=== PATIENT | male | born 1965 | race Caucasian/White ===

== ENCOUNTER → 2017-09-24 11:43 | Outpatient (CLI) | payer OTHER, SELFPAY ==
[2017-09-24 13:09] LABS: AST(SGOT) 33 U/L (15-37); Alanine Aminotransfer ALT/SGPT 65 U/L (16-61); Alkaline Phosphatase 76 U/L (45-117); Cholesterol 132 mg/dL (200); Globulin 3.4 g/dL (2.2-4.2); High Density Lipoprotein 47 mg/dL; Protein, Total 7.4 g/dL (6.4-8.2); Triglycerides 101 mg/dL; Very Low Density Lipoprotein 20 mg/dL (5-40)
== END ==
PROVIDERS: Family Provider Family Medicine; PCP Family Medicine; Visit Provider Physician Assistant Medical
DX: E78.5 Hyperlipidemia, unspecified (principal); Z79.899 Other long term (current) drug therapy
CPT/HCPCS: 36415; 80061; 80076

== ENCOUNTER 2018-04-18 18:30 | Outpatient (RCR) | payer OTHER, SELFPAY ==
--- NOTE | 2018-03-20 16:23 | HP.PTEVAL_ITS ---
Patient's Visit Information JAYLEEN CARTAGENA is a 52 year old M referred to Physical Therapy by Ottoniel Saenz with a diagnosis of RIGHT CALF STRAIN - MEDIAL. Date of Evaluation: 03/20/18 Physical Therapist: Danita Mathews - Visit Plan Frequency: 2-3x /Week Duration: 4-6 Weeks Plan: TRANSFER OF CARE TO [facility] PT. THIS POC TO BE AMMENDED BY SAID PT APPROPRIATE. CURRENT PLAN IS FOR RIGHT LE US, ROM, STRETCHING AND STRENGTHEING NEEDED TO HELP MEET SET GOALS. 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 Disability: NO. Present symptoms: CENTER OF THE CALF. NO NUMBNESS OR TINGLING. PATIENT REPORTS HE DID FEEL THE OLD KNOT IN THE BACK OF HIS RIGHT THIGH WHILE BATTING JUST ABOUT 5 MINUTES BEFORE THIS HAPPEND WITH HIS CALF. Present since: LAST NIGHT. Pain Scale: WORST 10/10, LEAST 0/10. Currently: 07/25. Commenced as a result of: PLAYING SOFTBALL - CHASING A BALL. TURNED AND IT POPPED. Symptoms at onset: SAME. Worse: PULLING FOOT UP AND WALKING. TOUCHING IT. Better: SITTING, EXTENDING FOOT. LYING DOWN WITH WEIGHT ON R[place]. Disturbed sleep: YES. Previous history/Previous treatment: HAMSTRING STRAIN ABOUT 3 YEARS AGO TREATED WITH PHYSICAL THERAPY. Gait: PAIN AND LIMP ON RIGHT LE WITH WALKING. Accidents: NO. Unexplained weight loss: NO. Imaging: NONE. PMH: RIGHT SHOULDER SURGERY 1987. AFIB. OTHER: PATIENT REPORTS HIS FAMILY HAS A BLOOD CLOTTING DISORDER AND HE ISN'T SURE IF HE HAS IT OR NOT. - Objective THIS PATIENT AMBULATES INDEP'LY INTO PT TODAY LIMPING ON HIS RIGHT LE AND WEARING A COMPRESSION GARMET. HE IS NOT USING ANY ASSISTIVE DEVICES. THERE IS DECREASED MUSCLE TONE OF THE RIGHT CALF COMPARED TO THE LEFT AND TENDERNESS AND BRUISING ALONG THE MEDIAL HEAD OF THE GASTROC. LLE ROM AND STRENGTH IS WNL. RIGHT LE STRENGTH: HIP 4/5, KNEE EXT 4/5, KNEE FLEX 4/5, ANKLE DORSI FLEX AT LEAST 3+/5 BUT DIFFICULT TO ASSESS DUE TO CALF PAIN WITH ACTIVE ROM OF RIGHT ANKLE INTO FULL DORSIFLEXION. PLANTAR FLEX 2-/5 AND TESTING PROVOKES PAIN. PATIENT IS ABLE TO ACTIVELY WIGGLE ALL TOES. MORRIS LE LIGHT TOUCH SENSATION IS INTACT AND SYMMETRICAL. THE RIGHT CALF IS REALLY NOT HYPERSENSATIVE TO LIGHT TOUCH BUT THERE IS SWELLING AND DEEPER PALPATION OF THE RIGHT MEDIAL GASTROC PROVOKES PAIN. HE HAS SOME TENDERNESS THROUGH OUT THE BODY OF THE MEDIAL AND LATERAL GASTROC BUT NOT MUCH MEDIALLY. HE IS NOT TENDER IN HIS HAMSTRINGS. RIGHT LE ROM IS WFL BUT PAIN IS PROVOKED WITH ANKLE AROM TESTING. TREATMENT: PATIENT WAS SEEN TODAY FOR NON-THERMAL US TO THE RIGHT MEDIAL CALF WITH PATIENT SUPINE FOLLOWED BY GENTLE STICK ROLL-OUT AND HEP INSTRUCTION FOR QS 'S, AROM KNEE FLEXION, AND GENTLE AROM OF LEFT FOOT AND ANKLE. PATIENT HAS A FOAM ROLLER THAT HE MAY DO GENTLY WELL. HOME INSTRUCTION FOR REST, ICE, ELEVATION AND GENTLE ROM. PATIENT COMMUNCIATED A GOOD UNDERSTANDING OF ALL INSTRUCTIONS AFTER GIVEN. CASE CONFERENCE WITH [facility] PT TODAY. - Goals Goal 1:: DECREASE C/O RIGHT CALF PAIN Goal Time Frame: 4-6 Weeks Goal 2:: INCREASE PAINFREE ROM OF RIGHT FOOT AND ANKLE TO ALLOW FOR IMPROVED ADL 'S Goal Time Frame: 4-6 Weeks Goal 3:: INCREASE FUNCTIONAL STRENGTH OF RIGHT LE TO ALLOW FOR RETURN TO PRIOR LEVEL OF FUNCTION. Goal Time Frame: 4-6 Weeks Goal 4:: INDEP GAIT WITHOUT DEVIATION Goal Time Frame: 4-6 Weeks Goal 5:: INDEP HEP. Goal Time Frame: 4-6 Weeks - Rehabilitation Potential Rehabilitation Potential: Good - Anticipated Interventions Patient/Client Instruction: Educate patient on: Condition, Plan of Care, Risk Factors, Benefits of Fitness Program For the Purpose of:: To improve self management Therapeutic Exercise to Include: Strength training, Agility training, Flexibilty training, Gait and locomotor training, Passive ROM, Active ROM For the Purpose of:: To decrease pain, To increase ROM, To improve muscle performance and motor function, To increase tolerance to activity/condition/ position, To improve ability of physical actions for home/community/work/leisure , To improve gait and locomotor functions Manual Therapy Techniques to Include: Passive ROM, Soft tissue mobilization For the Purpose of:: To decrease pain, To increase ROM, To improve nutrient delivery to tissue TENS: Yes Cryotherapy (ice pack, ice massage): Yes Ultrasound (thermal/non thermal): Yes - NON-THERMAL X 2-3 DAYS For the Purpose of:: To decrease pain, To decrease swelling/inflammation, To increase ROM, To improve nutrient delivery to tissue Thank you for the opportunity to evaluate your patient. For Medicare and Medicare HMO plans, please review the plan of care and approve it. It will need to be FAXED BACK to us at [phone] for Medicare purposes. Please let me know if there are questions or concerns regarding this plan of care. Physician Signature: Date:
--- NOTE | 2018-05-30 16:00 | HP.PT.NRP ---
HP - Discharge Summary (1) - Patient Information JAYLEEN CARTAGENA was seen in my office for initial evaluation on 03/20/18. The following Plan of Care was established for this patient: Initial Frequency: 2-3x /Week Initial Duration: 4-6 Weeks - Anticipated Interventions Patient/Client Instruction: Educate patient on: Condition, Plan of Care, Risk Factors, Benefits of Fitness Program For the Purpose of:: To improve self management Therapeutic Exercise to Include: Strength training, Agility training, Flexibilty training, Gait and locomotor training, Passive ROM, Active ROM For the Purpose of:: To decrease pain, To increase ROM, To improve muscle performance and motor function, To increase tolerance to activity/condition/position, To improve ability of physical actions for home/community/work/leisure, To improve gait and locomotor functions Manual Therapy Techniques to Include: Passive ROM, Soft tissue mobilization For the Purpose of:: To decrease pain, To increase ROM, To improve nutrient delivery to tissue TENS: Yes Cryotherapy (ice pack, ice massage): Yes Ultrasound (thermal/non thermal): Yes - NON-THERMAL X 2-3 DAYS For the Purpose of:: To decrease pain, To decrease swelling/inflammation, To increase ROM, To improve nutrient delivery to tissue This patient was last seen in our office . Pertinent comments regarding their Physical therapy will appear below: Pt was treated for 9 PT visits for his R calf strain througth the date of 04/18/18. Pt phoned the clinic a few weeks later to reports he was doing well and didn't feel like he needed any more PT at that time. Pt was discontinued at that time. At this point I will be discontinuing this patient from physical therapy. I would be happy to see this patient again in the future if found appropriate by the physician. Thank you! Cali Wu, PT,
== END 2018-04-18 19:00 | disposition home or self-care (01) ==
LOC: PT 18:30
PROVIDERS: Family Provider Family Medicine; PCP Family Medicine; Visit Provider Family Medicine
DX: S86.111D Strain of other muscle(s) and tendon(s) of posterior muscle group at lower leg level, right leg, subsequent encounter (principal)
CPT/HCPCS: 97035; 97110; 97140; 97161; 97530

== ENCOUNTER 2018-05-06 05:22 | Day surgery (SDC) | payer OTHER, SELFPAY ==
[2018-05-06] VITALS (8 sets, daily range): BP systolic 86–145; BP diastolic 62–112; PULSE 66–80; RESP 14–16; TEMP 35.9–37.1; O2SAT 94–100; BMI 30.4
--- NOTE | 2018-05-06 | COLBX_PTH ---
PATIENT: JAYLEEN CARTAGENA LOC: EN U#:[id number] AGE/SX: 52/M ROOM: RE05/06/[address]: Dr. Rene Quintana MD : 1965 BED: DIS: 05/06/2018 SPEC #: [id number] RECD: 05/06/18 13:51 STATUS: BASILIA GIBSON #: [id number] KEMAL: 05/06/18 00:[address]: Rene Quintana DEPT: SURGICAL PATHOLOGY RECD BY: Adnrae Chung ENTERED: 05/06/18 13:52 SP TYPE: COLON BX OTHR DR: Dr. Ottoniel Saenz MD Tissues: A - Cecum, NOS B - Sigmoid colon biopsy C - Rectum, NOS Procedures: Surgery Specimen Level IV HEADER OPERATION: Colonoscopy (MOD) PRE-OP DIAGNOSIS: Screening TISSUE SUBMITTED: A - Biopsy of cecum polyp, B - Polypectomy of distal sigmoid polyp, C - Polypectomy of rectal polyp MICROSCOPIC DIAGNOSIS A. Cecum polyp, biopsy: Tubular adenoma. B. Distal sigmoid polyp, polypectomy: Hyperplastic polyp. C. Rectal polyp, biopsy: Consistent with serrated adenoma (mixed tubular adenoma and hyperplastic polyp). RUFINO:vinay 05/07/18 MICROSCOPIC DESCRIPTION Slides are reviewed. GROSS DESCRIPTION A - Received in fixative is one container labeled with the patient's name and designated biopsy of cecum polyp. The specimen consists of multiple irregular fragments of light barillas soft tissue that in aggregate measure 1.5 x 0.6 x 0.1 cm. The specimen is totally submitted in one cassette. B - Received in fixative is one container labeled with the patient's name and designated distal sigmoid polyp. The specimen consists of one irregular fragment of light barillas soft tissue that measures 0.3 x 0.3 x 0.1 cm. The specimen is totally submitted in one cassette. C - Received in fixative is one container labeled with the patient's name and designated rectal polyp. The specimen consists of a piece of barillas-pink polyp measuring 0.3 x 0.3 x 0.1 cm. The entire specimen is submitted in one cassette. / RUFINO:vinay 05/06/18 TC:1 CPT: 39062 x3
--- NOTE | 2018-05-06 06:19 | HP.PCM_ITS ---
Problem List (1) Screening for intestinal cancer Status: Acute History of Present Illness Date of Admission: 05/06/18 The patient is a 52 year old M screening for intestinal cancer. He has never had a previous colonoscopy. He has had some mild hemorrhoidal disease. No abdominal pain. No bright red blood per rectum or melena. No direct family members with colon cancer. He does have an uncle had colon cancer that I assisted. He otherwise states that he enjoys good health. Past Medical History Past Medical History (Chronic Problems): Chronic Problems (Last Reviewed 09/24/17 @ 12:46 by Di Holman) Sinus bradycardia (Chronic) Syncope (Chronic) Valvular heart disease (Chronic) Nonrheumatic mitral valve prolapse (Chronic) HLD (hyperlipidemia) (Chronic) Paroxysmal atrial fibrillation (Chronic) Hypokalemia (Chronic) Medical History: Medical History (Last Reviewed 09/24/17 @ 12:46 by Di MilnerEase My Sell) Nonrheumatic mitral valve prolapse (Chronic) I34.1 HLD (hyperlipidemia) (Chronic) E78.5 Paroxysmal atrial fibrillation (Chronic) I48.0 Hypokalemia (Chronic) E87.6 Allergies amoxicillin Allergy (Verified 09/24/17 12:46) Unknown Home Medications: Ambulatory Orders Medication Instructions Recorded metoprolol succinate ER 25 mg 25 mg PO QDAY #90 tab 06/25/17 tablet,extended release 24 hr aspirin 81 mg tablet,delayed 81 mg PO QDAY 08/03/17 release flecainide 100 mg tablet 100 mg PO BID tab 08/03/17 selenium 200 mcg tablet,delayed 200 mcg PO QDAY ea 08/03/17 release potassium chloride ER 10 mEq 20 meq PO QDAY #180 tab 02/13/18 tablet,extended release Surgical History: Surgical History (Last Updated 09/24/17 @ 12:45 by Di Holman) History of cholecystectomy Z90.49 Smoking Status: Never smoker Review of Systems Constitutional: Denies: Anorexia HEENT: Denies: Difficulty Swallowing Cardiovascular: Denies: Chest Pain Respiratory: Denies: Cough Gastrointestinal: Denies: Abdominal Pain Endocrine: Denies: Change in Body Habitus VTE Information - Inpt Only VTE Present on Admission: No Patient Problems: Active and Suspected Problems (Last Reviewed 09/24/17 @ 12:46 by Di Holman) Screening for intestinal cancer (Acute) - Physical Exam General: Alert, Oriented x3, Cooperative, No apparent distress HEENT: Atraumatic Oral: Moist Mucosa Neck: Supple, Negative Carotid Bruits Lungs: Clear to auscultation Cardiovascular: Regular rate, Regular Rhythm Abdomen: Bowel Sounds Present, Soft, Non Tender, Non-Distended Extremities: No Calf Tenderness Psych/Mental Status: Normal Affect Vital Signs Temp Pulse Resp BP Pulse Ox 96.6 F L 80 16 132/99 H 98 05/06/18 05:44 05/06/18 05:44 05/06/18 05:44 05/06/18 05:44 05/06/18 05:44 Oxygen Delivery Method Room Air Weight: 231 lb Body Mass Index (BMI) 30.4 Assessment/Plan All Active Problems (Last Reviewed 09/24/17 @ 12:46 by Di Holman) Screening for intestinal cancer (Acute) I recommend a screening colonoscopy. The patient is aware of the technique, benefits, risks and alternatives. He has had an opportunity to ask and have questions answered. We will proceed at his discretion. Primary care physician Dr. Ottoniel Quintana M.D., F.A.C.S.
--- NOTE | 2018-05-06 06:55 | OP.ENDO_ITS ---
Patient Name: Costa Ribera Procedure Date: 05/06/2018 6:15 AM Date of : 1965 Age: 52 Procedure: Colonoscopy Indications: Screening for colorectal malignant neoplasm Providers: Rene Quintana MD Referring MD: Rene Quintana MD Medicines: Midazolam 4.5 mg IV, Meperidine 100 mg IV Patient Profile: Last Colonoscopy: none. The patient's first colonoscopy is today. Complications: No immediate complications. Procedure: Pre-Anesthesia Assessment: - Prior to the procedure, a History and Physical was performed, and patient medications and allergies were reviewed. The patient's tolerance of previous anesthesia was also reviewed. The risks and benefits of the procedure and the sedation options and risks were discussed with the patient. All questions were answered, and informed consent was obtained. Prior Anticoagulants: The patient has taken no previous anticoagulant or antiplatelet agents. ASA Grade Assessment: I - A normal, healthy patient. After reviewing the risks and benefits, the patient was deemed in satisfactory condition to undergo the procedure. After I obtained informed consent, the scope was passed under direct vision. Throughout the procedure, the patient's blood pressure, pulse, and oxygen saturations were monitored continuously. The colonoscope was introduced through the anus and advanced to the cecum, identified by appendiceal orifice and ileocecal valve. The colonoscopy was performed without difficulty. The patient tolerated the procedure well. The quality of the bowel preparation was good. The ileocecal valve was photographed. Moderate Sedation: Moderate (conscious) sedation was personally administered by the endoscopist. The following parameters were monitored: oxygen saturation, heart rate, blood pressure, and response to care. Total physician intraservice time was 15 minutes. Scope In: 6:32:24 AM Scope Withdrawal Time 0 hours 13 minutes 31 seconds Scope Out: 6:48:20 AM Total Procedure Duration Time 0 hours 15 minutes 56 seconds Findings: The perianal and digital rectal examinations were normal. A 4 mm polyp was found in the cecum. The polyp was sessile. The polyp was removed with a cold biopsy forceps. Resection and retrieval were complete. A 5 mm polyp was found in the distal sigmoid colon. The polyp was sessile. The polyp was removed with a hot snare. Resection and retrieval were complete. A 5 mm polyp was found in the rectum. The polyp was sessile. The polyp was removed with a hot snare. Resection and retrieval were complete. A few diverticula were found in the sigmoid colon. Impression: - One 4 mm polyp in the cecum, removed with a cold biopsy forceps. Resected and retrieved. - One 5 mm polyp in the distal sigmoid colon, removed with a hot snare. Resected and retrieved. - One 5 mm polyp in the rectum, removed with a hot snare. Resected and retrieved. - Diverticulosis in the sigmoid colon. Recommendation: - Discharge patient to home. - Resume previous diet. - Continue present medications. - Telephone my office for pathology results in 1 week. - Repeat colonoscopy in 3 years for surveillance. Procedure Code(s): --- Professional --- 77519, Colonoscopy, flexible; with removal of tumor(s), polyp(s), or other lesion(s) by snare technique 94023, 59, Colonoscopy, flexible; with biopsy, single or multiple 99691, 59, Moderate sedation services provided by the same physician or other qualified health prompt care rn performing the diagnostic or therapeutic service that the sedation supports, requiring the presence of an independent trained observer to assist in the monitoring of the patient's level of consciousness and physiological status; initial 15 minutes of intraservice time, patient age 5 years or older Diagnosis Code(s): --- Professional --- Z12.11, Encounter for screening for malignant neoplasm of colon D12.0, Benign neoplasm of cecum D12.5, Benign neoplasm of sigmoid colon K62.1, Rectal polyp K57.30, Diverticulosis of large intestine without perforation or abscess without bleeding CPT copyright 2017 [employer]. All rights reserved. The codes documented in this report are preliminary and upon client relation specialist review may be revised to meet current compliance requirements. Rene Quintana MD 05/06/2018 6:54:56 AM This report has been signed electronically. Number of Addenda: 0 Note Initiated On: 05/06/2018 6:15 AM
== END 2018-05-06 07:59 | disposition home or self-care (01) ==
LOC: EN 05:22 → AC 05:25
PROVIDERS: Family Provider Family Medicine; PCP Family Medicine; Referring Provider Surgery; Visit Provider Surgery
PROC: 0DJD8ZZ Inspection of Lower Intestinal Tract, Via Natural or Artificial Opening Endoscopic (ICD-10-PCS; CPT 45378; principal; 2018-05-06 06:25)
DX: Z12.11 Encounter for screening for malignant neoplasm of colon (principal); D12.0 Benign neoplasm of cecum; D12.5 Benign neoplasm of sigmoid colon; D12.8 Benign neoplasm of rectum; K57.30 Diverticulosis of large intestine without perforation or abscess without bleeding; I25.10 Atherosclerotic heart disease of native coronary artery without angina pectoris; I34.1 Nonrheumatic mitral (valve) prolapse; I48.0 Paroxysmal atrial fibrillation; E78.5 Hyperlipidemia, unspecified; E87.6 Hypokalemia; R00.1 Bradycardia, unspecified; Z79.82 Long term (current) use of aspirin; Z79.899 Other long term (current) drug therapy
CPT/HCPCS: 45380; 45385; 88305; 99152; 99153; J7120

== ENCOUNTER 2018-06-21 22:08 | Emergency (ER) | payer OTHER, SELFPAY ==
[2018-06-21 22:09] VITALS: BP 174/104; PULSE 69; RESP 14; TEMP 36.6; O2SAT 96; BMI 31.6
--- NOTE | 2018-06-21 22:29 | EKG12_ITS ---
Test Reason : CP Blood Pressure : / mmHG Vent. Rate : 063 BPM Atrial Rate : 063 BPM P-R Int : 214 ms QRS Dur : 100 ms QT Int : 438 ms P-R-T Axes : 032 000 005 degrees QTc Int : 448 ms Sinus rhythm with 1st degree A-V block Moderate voltage criteria for LVH, may be normal variant Borderline ECG Confirmed by BEATRIZ HOPSON, RYAN ([id number]), editor publications SELMA PALMA ([id number]) on 06/24/2018 1:56:53 PM Referred By: MR Confirmed By:RYAN HENDERSON MD
--- NOTE | 2018-06-21 22:37 | RAD_ITS ---
STUDY: X-RAY CHEST REASON FOR EXAM: Male, 52 years old. Chest pain radiating into back TECHNIQUE: PA and lateral views of the chest. COMPARISON: None. FINDINGS: case monitor leads are present. The lungs are clear and expanded. There is no demonstrated pleural abnormality. Normal size heart. Normal mediastinum and blanca. Normal visualized pulmonary arteries. Normal visualized aortic arch and descending thoracic aorta. Normal visualized thoracic spine. An orthopedic screw is seen overlying the right shoulder area on the edge of the film. There is no demonstrated abnormality of the visualized soft tissue structures of the upper abdomen. RAD/Chest PA and Lateral IMPRESSION: No acute cardiopulmonary disease process is seen. Electronically Signed: Brandon Mirza MD at 22:58 EST , Service support ,
[2018-06-21 22:44] LABS: Absolute Lymphocyte Count 2.28 X10^3/ul (0.83-4.51); Absolute Neutrophil Count 3.7 X10^3/uL (2.0-7.7); Basophil# 0.03 X10^3/uL; Basophil% 0.5 % (0-1); Eosinophil# 0.09 X10^3/uL; Eosinophils% 1.4 % (0-5); Hematocrit 44.6 % (40-54); Lymphocyte # 2.28 X10^3/ul (4.0); Lymphocyte % 34.5 % (19-41); Mean Corp Hgb Conc 33.6 g/gl (32-36); Mean Corpuscular Volume 92.1 fL (80-94); Mean Platelet Vol. 10.1 fl (6.2-12.0); Monocyte# 0.51 X10^3/uL; Monocyte% 7.7 % (0-10); Neutrophil # 3.69 X10^3/uL (2.7-7.7); Neutrophil % 55.7 % (47-70); POSITIVE COUNT NO; POSITIVE DIFFERENTIAL NO; POSITIVE MORPHOLOGY NO; Platelet Count 230 K/mm3 (150-450); RBC Distribution Width CV 13.3 % (11.6-14.6); Red Blood Count 4.84 M/mm3 (4.6-6.2); White Blood Count 6.6 K/mm3 (4.4-11.0)
[2018-06-21] MEDS: Aspirin 81 MG TAB.CHEW 324 MG PO (22:48)
[2018-06-21 22:52] VITALS: O2SAT 96
[2018-06-21 23:04] LABS: Anion Gap 8 (5-15); BUN 26 mg/dL (7-18); BUN/Creat Ratio 26.4 RATIO (10-20); Calcium,Total 9.3 mg/dL (8.5-10.1); Chloride 104 mmol/L (98-107); Creatinine, Serum 0.98 mg/dL (0.70-1.30); EST Glomerular Filtration Rate 86 mL/min (>60); Est Glom Filt Rate - Afr Amer 103 mL/min (>60); Estimated Creatinine Clearance 101.91 ml/min; Glucose 81 mg/dL (74-106); Sodium Level 141 mmol/L (136-145)
[2018-06-21 23:11] VITALS: BP 151/103; PULSE 55; RESP 16; O2SAT 95
--- NOTE | 2018-06-21 23:39 | ED.DCSUM_ITS ---
- ER Visit Summary Date of Service: 06/21/18 Chief Complaint: Chest pain History of Present Illness: The patient is a 52 M presenting for evaluation secondary chest pain. Patient reports that today he had an episode of chest heaviness that lasted about 2-3 seconds. He states he was driving when this happened. There were no associated symptoms with this. Patient states that intermittently over the course the last 2 weeks he has been getting left arm pain, but this does not seem to be associated with any sort of inducible factor or exertion. Denies any shortness of breath, lightheadedness, nausea, palpitations. Patient has a history of well-controlled A. fib, and is on flecainide and metoprolol. His last stress test was about 7 years ago. Physical Examination: Vital signs are within normal limits, patient is afebrile. General: Patient is well-nourished well-developed and in no acute distress. Head: Normocephalic, atraumatic Eyes: Pupils equal round and reactive bilaterally, extra occular motion intact bialterally ENT: Moist mucous membranes Neck: Supple, no lymphadenopathy, no JVD, no meningismus CVS: Heart regular rate and rhythm, no murmurs, rubs or gallops, radial pulses 2+ bilaterally Resp: Respirations nondistressed, lung sounds clear bilaterally Abdomen: Soft, nontender, nondistended, no palpable masses, normal bowel sounds Back: Nontender Extremities: Nontender, atraumatic, active full range of motion, no peripheral edema Skin: warm, no rashes, no petechia Neuro: Alert and oriented x 4, CN 2-12 intact, no lateralizing neurological defecits Psyc: Normal affect Test Results: EKG shows sinus rhythm with a first-degree AV block at a rate of 63. Isoelectric ST segments normal T waves. CBC chemistry troponin unremarkable, chest x-ray unremarkable. Emergency Department Course and Treatment: Patient presented for evaluation secondary to chest pain. Workup as noted above is found to be negative. Patient's heart score at the maximum is 3. I do not believe that he requires admission as his symptoms seem extremely atypical. Patient has no DVT or PE risk factors. 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 Disposition: Discharge Impression: 1. Chest pain This note was generated with [employer] dictation software. It may contain incorrect words, spelling, and punctuation that were not noted in review of the chart p rior to signing ED Disposition - Plan for ED Patient: Disposition: Home or Assisted Living Chief Complaint: Chest Pain Diagnosis: Chest pain Instructions: ED Chest Pain NonCardiac Referrals: Arthur Keith MD [STAFF PHYSICIAN] - 5-7 Days
[2018-06-21 23:48] VITALS: BP 152/99; PULSE 60; RESP 14; O2SAT 98
--- NOTE | 2018-06-21 23:48 | ED.RN ---
pt given written and verbal discharge instructions. pt verbalizes understanding. educated that if any new or worsened sx started, that he needs to be re-evaluated. pt iv d/c and covered with 2x2 gauze dressing and paper tape. pt dresses self and ambulates out of dept with spouse.
== END 2018-06-21 23:51 | disposition home or self-care (01) ==
PROVIDERS: Emergency Provider Emergency Medicine; Family Provider Family Medicine; PCP Family Medicine
DX: R07.89 Other chest pain (principal); I48.91 Unspecified atrial fibrillation; Z79.899 Other long term (current) drug therapy; Z79.82 Long term (current) use of aspirin
CPT/HCPCS: 71046; 80048; 84484; 85025; 93005; 99285

== ENCOUNTER → 2018-07-11 12:55 | Outpatient (CLI) | payer OTHER, SELFPAY ==
[2018-06-21 22:09] VITALS: BMI 31.6
--- NOTE | 2018-07-11 12:56 | ECHOD_ITS ---
Reason For Study: MV DISORDER Procedure This was a 2D Doppler, Color Flow transthoracic echocardiogram. The exam was of adequate technical quality. Exam performed in department. Left Ventricle Normal LV size. Left ventricular systolic function is normal. The estimated ejection fraction is 65 %. Transmitral doppler flow suggestive of impaired relaxation of left ventricle. No regional wall motion abnormalities noted. Right Ventricle Normal RV size. Normal systolic function. Atria Normal left atrium. Normal right atrium. No doppler evidence for ASD. Mitral Valve There is no mitral annular calcification. Mild diffuse mitral valve thickening. Mild (1+) mitral valve insufficiency. Tricuspid Valve Normal tricuspid valve. Trivial tricuspid valve insufficiency. Right ventricular systolic pressure estimated to be 27 mmHg. Aortic Valve Trisinus/trileaflet aortic valve. Normal aortic valve. Pulmonic Valve The pulmonic valve is not well visualized. Trivial pulmonic valve insufficiency. Great Vessels Normal sized aortic root. Pericardium/Pleural No pericardial effusion. MMode/2D Measurements & Calculations LVIDd: 5.1 cm IVSd: 1.1 cm Ao root diam: 3.4 cm LVIDs: 3.5 cm LVPWd: 1.1 cm RVDd: 3.4 cm FS: 31.8 % LAV(MOD-bp): 55.8 ml LA A4 area: 18.3 cm2 LA dimension(2D): 4.5 cm LAV(MOD-bp) Indexed: 24.2 ml/m2 LAV(MOD-sp2): 60.2 ml LAV(MOD-sp4): 50.9 ml RA A4 area: 12.3 cm2 Time Measurements MV dec time: 0.21 sec Doppler Measurements & Calculations MV E max ramon: 56.4 cm/sec Lat Peak E' Ramon: 9.2 cm/sec Med Peak E' Ramon: 5.9 cm/sec MV A max ramon: 64.8 cm/sec E/E' lat: 6.2 E/E' med: 9.6 MV E/A: 0.87 Ao V2 max: 129.0 cm/sec LV V1 max: 116.2 cm/sec PA V2 max: 88.7 cm/sec Ao max P.7 mmHg LV V1 max P.4 mmHg TR max ramon: 255.6 cm/sec TR max P.1 mmHg Interpretation Summary Left ventricular systolic function is normal. The estimated ejection fraction is 65 %. Mild diffuse mitral valve thickening. Mild (1+) mitral valve insufficiency. Trivial tricuspid valve insufficiency. Trivial pulmonic valve insufficiency. Right ventricular systolic pressure estimated to be 27 mmHg. Transmitral doppler flow suggestive of impaired relaxation of left ventricle Ordering Physician: Ottoniel Saenz Referring Physician: Ottoniel Saenz Performed By: Rupinder Chan RDCS, RVT
== END ==
PROVIDERS: Family Provider Family Medicine; PCP Family Medicine; Referring Provider Family Medicine; Visit Provider Family Medicine
DX: I05.9 Rheumatic mitral valve disease, unspecified (principal)
CPT/HCPCS: 93306

== ENCOUNTER → 2018-07-31 14:44 | Outpatient (CLI) | payer OTHER, SELFPAY ==
[2018-07-31 14:06] VITALS: BMI 31.6
[2018-07-31 15:57] LABS: AST(SGOT) 33 U/L (15-37); Alanine Aminotransfer ALT/SGPT 64 U/L (16-61); Albumin, Serum 4.2 g/dL (3.2-5.0); Alkaline Phosphatase 89 U/L (45-117); Bilirubin, Direct 0.19 mg/dL (0.00-0.30); Cholesterol 152 mg/dL (200); Globulin 3.6 g/dL (2.2-4.2); High Density Lipoprotein 52 mg/dL; Protein, Total 7.8 g/dL (6.4-8.2); Triglycerides 102 mg/dL; Very Low Density Lipoprotein 20 mg/dL (5-40)
--- OUTSIDE RECORDS SUMMARY | 2018-10-05 13:46 | XMS RPT_ITS ---
:1965 Author Organization [place] Support Name Relationship Address Phone ESTRADA CARTAGENA Unavailable [address] + [place] [address] NORWESSCH Unavailable [address] + [place] [address] CARTAGENA, ESTRADA Unavailable [address] + [place] [address] [place]ESS[place] Unavailable [address] + [place] [address] CARTAGENA, ESTRADA Unavailable [address] + [place] [address] NORWESSCH Unavailable [address] + [place] [address] CARTAGENA, ESTRADA Unavailable [address] + [place] [address] NORWESSCH Unavailable [address] + [place] [address] CARTAGENA, ESTRADA Unavailable [address] + [place] [address] NORWESSCH Unavailable [address] + [place] [address] CARTAGENA, ESTRADA Unavailable [address] + [place] [address] NORWESSCH Unavailable [address] + [place] [address] CARTAGENA, ESTRADA Unavailable [address] + [place] [address] NORWESSCH Unavailable [address] + [place] [address] CARTAGENA, ESTRADA Unavailable [address] + [place] [address] NORWESSCH Unavailable [address] + [place] [address] CARTAGENA, ESTRADA Unavailable [address] + [place] [address] NORWESSCH Unavailable [address] + [place] [address] CARTAGENA, ESTRADA Unavailable [address] + [place] [address] NORWESSCH Unavailable [address] + [place] [address] CARTAGENA, ESTRADA Unavailable [address] + [place] [address] NORWESSCH Unavailable [address] + [place] [address] CARTAGENA, ESTRADA Unavailable [address] + [place] [address] NORWESSCH Unavailable [address] + [place] [address] CARTAGENA, ESTRADA Unavailable [address] + [place] [address] NORWESSCH Unavailable [address] + [place] [address] Care Team Providers Name Role Phone Ottoniel Saenz Attending Unavailable Ottoniel Saenz Referring Unavailable [facility] Unavailable Carol Celis Attending Unavailable Arthur Keith Attending Unavailable Ottoniel Saenz Referring Unavailable Arthur Keith Attending Unavailable Ottoniel Saenz Referring Unavailable Arthur Keith Attending Unavailable Arthur Keith Referring Unavailable [facility] Unavailable Carol Aguilar Attending Unavailable Carol Aguilar Referring Unavailable [facility] Unavailable Di Holman Attending Unavailable Aiden Rivera Attending Unavailable Ottoniel Saenz Referring Unavailable [facility] Primary [facility] Unavailable Ottoniel Saenz Attending Unavailable Ottoniel Saenz Referring Unavailable Ottoniel Saenz Primary Care Unavailable Nurse, Surgery Attending Unavailable Ottoniel Saenz Referring Unavailable Rene Quintana Attending Unavailable CeRene denton Referring Unavailable Ottoniel Saenz Primary Care Unavailable Rene Quintana Attending Unavailable [facility] Unavailable Samuel White Attending Unavailable PROBLEMS PROBLEMS DATE TYPE CONDITION / CODE ATTENDING STATUS SOURCE 07/31/2018 Unknown I48.0 - Paroxysmal MoodispaArthur alarcon Britney Guo atrial fibrillation Community / I48.0(ICD-10) Hospital Repository 07/31/2018 Unknown E78.2 - Mixed MoodispaArthur alarcon Britney Abebeoster hyperlipidemia / Community E78.2(ICD-10) Hospital Repository 05/16/2018 Unknown Z12.11 - Encounter CebuRene adame Britney Guo for screening for [facility] malignant neoplasm [facility] colon / Repository Z12.11(ICD-10) 05/16/2018 Unknown 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 / [facility] D12.0(ICD-10) Hospital Repository 05/16/2018 Unknown 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 / Hospital D12.5(ICD-10) Repository 05/16/2018 Unknown K62.1 - Rectal polyp CebulRene Britney Guo / K62.1(ICD-10) [facility] Hospital Repository 05/16/2018 Unknown K57.30 - CebulRene Britney Guo Diverticulosis of [facility] large intestine Hospital without perforation Repository or abscess without bleeding / K57.30(ICD-10) 06/04/2018 Unknown S86.111D - Strain of Britney Saenz other muscle(s) and [facility] tendon(s) of [facility] posterior muscle Repository group at lower leg level, right leg, subsequent encounter / S86.111D(ICD-10) PROCEDURES PROCEDURES No Procedure Records FoundRESULTS RESULTS CARDIOLOGY VISIT Observed: 07/31/2018 Status: F Source: [place] REPORT 2:55 PM [facility] REPOSIT[facility] [address] [place] [address] OFFICE VISIT Date of Service: 07/31/18 MR#: [id number] Acct: [id number] Name: COSTA CARTAGENA Rep #: [id number] : 1965 Provider: Arthur Keith MD Age/Sex: 52/M [place] [facility] Status: Signed HPI HPI Details: COSTA CARTAGENA, is a 52 M who presents to the office today for Outpatient cardiovascular follow up. Overall from a cardiac standpoint he states he is doing well at the moment. In June of 2018 he visited the emergency department baseline concerns were brief relatively centralized chest discomfort/pressure. He did not necessarily demonstrate radiation of this discomfort nor has he had any associated symptoms or adverse events. He states by the time he got to the department his discomfort was better. He does note that his blood pressure had been running somewhat higher. He was evaluated in the emergency department with negative cardiac enzymes, an ECG that demonstrated sinus rhythm with a first-degree AV block and voltage criteria for LVH, chest x-ray which reported no acute findings, and he was subsequently released home for continued outpatient cardiovascular follow up. He was asked to be considered for an exercise tolerance test. Today he states overall he appears be doing better. However there is still concern that his blood pressure is somewhat elevated. He attributes this to his weight gain. He is not having ongoing chest discomfort at the moment. He has no evidence of orthopnea or PND or peripheral pitting edema. There has been no near syncope or syncope. He has not noted any obvious ongoing palpitations or rapid rate sensations. He did have a followup ECG today to monitor for any acute changes. He was in sinus rhythm / sinus bradycardia with voltage critieria for LVH with no acute ECG changes. Intake Vital Signs07/31/18 Body Mass Index (BMI) 31.6 07/31/18 Height 6 ft 07/31/18 Weight: 246 lb 07/31/18 Body Mass Index (BMI) 33.3 07/31/18 Blood Pressure 152/88 H Intake Visit Reasons: 10 m fu Allergies amoxicillin Allergy (Verified 07/31/18 13:57) Unknown guaifenesin [From Mucinex] Adverse Reaction (Severe, Verified 07/31/18 13:58) elevated BP and CP Medications aspirin 81 mg tablet,delayed release 81 mg PO QDAY 08/03/17 [History Confirmed 07/31/18] selenium 200 mcg tablet,delayed release 200 mcg PO QDAY ea 08/03/17 [History Confirmed 07/31/18] potassium chloride ER 10 mEq tablet,extended release 20 meq PO QDAY #180 tab 02/13/18 [Rx Confirmed 07/31/18] flecainide 100 mg tablet 100 mg PO BID #180 tab 06/12/18 [Rx Confirmed 07/31/18] metoprolol succinate ER 25 mg tablet,extended release 24 hr 25 mg PO QDAY #90 tab 06/12/18 [Rx Confirmed 07/31/18] cinnamon bark 500 mg capsule 500 mg PO DAILY cap 07/31/18 [History Confirmed 07/31/18] vitamin B complex and vit C no.3 15 mg-10 mg-50 mg-5 mg-300 mg capsule 1 cap PO DAILY 07/31/18 [History Confirmed 07/31/18] PFSH Medical History Nonrheumatic mitral valve prolapse (Chronic) HLD (hyperlipidemia) (Chronic) Paroxysmal atrial fibrillation (Chronic) Hypokalemia (Chronic) LEANN (obstructive sleep apnea) (Chronic) Surgical History History of cholecystectomy (Resolved) History of shoulder surgery (Resolved) Family History Father Myocardial infarction Hypertension CAD (coronary artery disease) Mother Diabetes Grandfather Myocardial infarction Social History Smoking Status: Never smoker alcohol intake: never substance use type: does not use ROS Const Const: Negative for fatigue, weakness, weight gain, weight loss, frequent falls or excessive sweating Eyes Eyes: Negative for change in vision, blurry vision or transient loss of vision ENT ENT: Negative for dizziness or balance problems Cardio Chest Pain: No Palpitations: No Edema: None Muscle aches with walking: None Resp Respiratory: Positive for Cough (occsional dry cough); negative for SOB with activity or SOB at rest GI GI: Negative vomiting or vomiting blood/hematemesis : Negative for hematuria Musc Musc: Negative for balance problems, muscle aches/ myalgia, muscle weakness or joint pain Skin Skin: Negative non-healing lesions or rash Neuro Neuro: Negative for weakness, blurry vision, dizziness, lightheadedness, frequent falls or orthostatic symptoms Heraclio Hematologic/Lymphatic: Negative for easy bleeding Endo Endo: Negative for fatigue or excessive sweating Psych Psych: Negative for anxiety or depression Allergy Allergy/Immunology: Negative for hives, Negative for rash Cardiology Exam Const Appearance: cooperative, healthy appearing, comfortable, no acute distress, well developed and well groomed Nutritional Appearance: average body habitus Orientation: alert, awake and oriented x3 Head Head: normal to inspection, normocephalic and atraumatic Ears: hearing grossly normal bilaterally Nose: external nose normal Face and Sinus: face symmetric Mouth: oral mucosae normal Teeth and gingiva: fair dentition Eyes Eyelids: eyelids normal Conjunctivae: conjunctivae normal Pupils: PERRL EOM: EOM intact bilaterally Neck Neck: no JVD, normal visual inspection and full ROM Carotids: normal carotid upstroke Chest Chest inspection: normal inspection of the chest, normal respiratory effort and symmetric chest movement Auscultation: Bilateral: Clear to Auscultation Cardio Rate: regular rate Rhythm: regular rhythm Heart sounds: S2 normal and murmur (LLSB systolic ); negative rub or gallop Murmur: Grade 2/6 GI GI: normal to inspection, soft and bowel sounds present Neuro General: alert, awake, oriented x3, moves all extremities, no focal sensory deficit and no focal motor deficits Skin Skin: no rashes or lesions noted Extremities Pulses: Normal: Right Posterior Tibial Pulse, Left Posterior Tibial Pulse, Right Radial Pulse, Left Radial Pulse Lower Extremity Edema: None: Bilateral Psych Psychological: normal affect Assessment AND Plan 1. Paroxysmal atrial fibrillation I48.0 Plan At the present time he does appear to be remaining in a regular rhythm. He will continue medical management. However basis pontis chest discomfort, and based upon any concern of the potential development of CAD, noting he is on antiarrhythmic therapy with flecainide, he will have at minimum follow up treadmill stress test. Depending upon the findings he may or may not need further cardiac evaluation or care. Orders Orders: 2. Sinus bradycardia R00.1 Plan His cardiac rate appears to be stable at this time. He will continue medical therapy with adjustment as needed. 3. Nonrheumatic mitral valve prolapse I34.1 Plan He does have a history of mitral valve prolapse. Based on his most recent echocardiogram as noted above he did not have any definitive mitral valve prolapse at that time. He will continue to be followed as deemed appropriate. 4. Vasovagal syncope R55 Plan He has had no recurrent near syncopal or syncopal events. He will continue his hydration therapy. 5. Mixed hyperlipidemia E78.2 Plan He will be scheduled for upcoming lipid lamps. Orders Orders: 6. Hypertension, unspecified type I10 Plan He was asked to monitor his blood pressure at home. If his blood pressure trends continue to be elevated then he will need adjustment of medication to try and bring his blood pressure under better control. Plan Detail Other Medications New: Additional Comments Thank you for allowing me to participate in the care of your patient. Please don't hesitate to call if any issues arise. This note was generated using a voice recognition system and there may be incorrect words, spelling or punctuation that were not noted when reviewing the office note prior to saving. Follow Up 6 Months (PFM) Coding Level of Care Code Off vis,est,level 4 Diagnoses Paroxysmal atrial fibrillation I48.0 Sinus bradycardia R00.1 Nonrheumatic mitral valve prolapse I34.1 Vasovagal syncope R55 Syncope type: vasovagal syncope Mixed hyperlipidemia E78.2 Hyperlipidemia type: mixed hyperlipidemia Hypertension, unspecified type I10 Hypertension type: unspecified Coding Level of Care Code Off vis,est,level 4 Diagnoses Paroxysmal atrial fibrillation I48.0 Sinus bradycardia R00.1 Nonrheumatic mitral valve prolapse I34.1 Vasovagal syncope R55 Syncope type: vasovagal syncope Mixed hyperlipidemia E78.2 Hyperlipidemia type: mixed hyperlipidemia Hypertension, unspecified type I10 Hypertension type: unspecified Supplemental Info Supplemental Information Transthoracic echocardiogram: 07/11/2018 Interpretation Summary Left ventricular systolic function is normal. The estimated ejection fraction is 65 %. Mild diffuse mitral valve thickening. Mild (1+) mitral valve insufficiency. Trivial tricuspid valve insufficiency. Trivial pulmonic valve insufficiency. Right ventricular systolic pressure estimated to be 27 mmHg. Transmitral doppler flow suggestive of impaired relaxation of left ventricle Labs LDL Cholesterol Pending 07/31/18 HDL Cholesterol Pending 07/31/18 Triglycerides Pending 07/31/18 VLDL Cholesterol Pending 07/31/18 Diagnostics Electrocardiogram 07/31/18 Echocardiogram 07/11/18 Chest X-Ray 06/21/18 07/31/18 0092 <Electronically signed by Arthur Keith MD> Date Arthur Keith MD Cosigner Signature: Date (if applicable) CC: Ottoniel Saenz MD LIVER PROFILE Collected: 07/31/2018 Status: F Source: [place] 2:[place] [facility] TYPE CODE TESTS RESULT OUT OF RANGE REFERENCE UNITS LAB L501.1500 6.4-8.2 g/dL Normal T PROT 7.8 LAB L501.1800 3.2-5.0 g/dL Normal ALB 4.2 LAB L501.1950 2.2-4.2 g/dL Normal GLOB 3.6 LAB L501.4100 15-37 U/L Normal AST 33 LAB L501.4305 45-117 U/L Normal ALK P 89 LAB L501.4405 16-61 U/L High ALT 64 LAB L501.4600 0.20-1.00 mg/dL Normal T BILI 0.80 LAB L501.4700 0.00-0.30 mg/dL Normal D BILI 0.19 Performed By: #### L500.3400, L500.4100 #### [facility] [address] [place], [place], [address] LIPID PROFILE Collected: 07/31/2018 Status: F Source: [place] 2:48 PM [facility] TYPE CODE TESTS RESULT OUT OF RANGE REFERENCE UNITS LAB L501.4900 200 mg/dL Normal CHOL 152 Result Comment: <200 mg/dL Desirable 200-240 mg/dL Borderline >240 mg/dL High Risk LAB L501.5000 mg/dL Normal TRIG 102 Result Comment: The drugs N-Acetylcysteine and Metamizole may falsely depress this assay. Serum Triglycerides Reference Interval Normal <150 mg/dL Borderline high 150 - 199 mg/dL High 200 - 499 mg/dL Very High > or = 500 mg/dL LAB L501.6400 mg/dL Normal HDL 52 Result Comment: The drugs N-Acetylcysteine and Metamizole may falsely depress this assay. Reference Range HDL <40 mg/dL Low HDL Cholesterol HDL >or= 60 mg/dL High HDL Cholesterol LAB L501.6500 0-130 mg/dL Normal LDL 80 LAB L501.6600 5-40 mg/dL Normal VLDL 20 Performed By: #### L500.3400, L500.4100 #### [facility] [address], [address] 12 LEAD EKG PERFORMED Observed: 07/31/2018 Status: F Source: [place] 2:30 PM [facility] [facility] [address] [place] [address] 12 [address] [place] [facility] 07/31/18 142 MR#: [id number] Acct: [id number] Name: COSTA CARTAGENA Rep #: [id number] : 1965 52 From: Arthur Keith MD Attending Dr: Arthur Keith MD Status: DEP AMB Ordering Dr: Arthur Keith MD Date: 07/31/18 [place] [facility] [place]: M C Admitted: BMS/12 Lead EKG [place] [facility] ECG Report Interpretation Sinus Bradycardia Voltage criteria for Left ventricular hypertrophy Poor R wave progression BORDERLINEElectronically signed on 07/31/2018 at 17:59 by Arthur Keithwood Software Version [id number] 07/31/18 1804 Date Arthur Keith MD CC: Ottoniel Saenz MD Date Dictated: 07/31/181428 Date Transcribed: 07/31/181428 Inspector [employer]: PM Signed ECHOCARDIOGRAM COMPLETE Observed: 07/11/2018 Status: F Source: [place] 5:02 PM [facility] [facility] Cardi[facility] Services [address] [place] [address] Echo Complete 07/11/18 1254 MR#: [id number] Acct: [id number] Name: COSTA CARTAGENA Rep #: [id number] : 1965 52 From: Arthur Keith MD Attending Dr: Ottoniel Saenz MD Status: REG CLI Ordering Dr: Joey Saenz MD Date: 07/11/18 Location: [facility] Sex: M C Admitted: Reason For Study: MV DISORDER Procedure This was a 2D Doppler, Color Flow transthoracic echocardiogram. The exam was of adequate technical quality. Exam performed in department. Left Ventricle Normal LV size. Left ventricular systolic function is normal. The estimated ejection fraction is 65 %. Transmitral doppler flow suggestive of impaired relaxation of left ventricle. No regional wall motion abnormalities noted. Right Ventricle Normal RV size. Normal systolic function. Atria Normal left atrium. Normal right atrium. No doppler evidence for ASD. Mitral Valve There is no mitral annular calcification. Mild diffuse mitral valve thickening. Mild (1+) mitral valve insufficiency. Tricuspid Valve Normal tricuspid valve. Trivial tricuspid valve insufficiency. Right ventricular systolic pressure estimated to be 27 mmHg. Aortic Valve Trisinus/trileaflet aortic valve. Normal aortic valve. Pulmonic Valve The pulmonic valve is not well visualized. Trivial pulmonic valve insufficiency. Great Vessels Normal sized aortic root. Pericardium/Pleural No pericardial effusion. MMode/2D Measurements AND Calculations LVIDd: 5.1 cm IVSd: 1.1 cm Ao root diam: 3.4 cm LVIDs: 3.5 cm LVPWd: 1.1 cm RVDd: 3.4 cm FS: 31.8 % LAV(MOD-bp): 55.8 ml LA A4 area: 18.3 cm2 LA dimension(2D): 4.5 cm LAV(MOD-bp) Indexed: 24.2 ml/m2 LAV(MOD-sp2): 60.2 ml LAV(MOD-sp4): 50.9 ml RA A4 area: 12.3 cm2 Time Measurements MV dec time: 0.21 sec Doppler Measurements AND Calculations MV E max ramon: 56.4 cm/sec Lat Peak E' Ramon: 9.2 cm/sec Med Peak E' Ramon: 5.9 cm/sec MV A max ramon: 64.8 cm/sec E/E' lat: 6.2 E/E' med: 9.6 MV E/A: 0.87 Ao V2 max: 129.0 cm/sec LV V1 max: 116.2 cm/sec PA V2 max: 88.7 cm/sec Ao max P.7 mmHg LV V1 max P.4 mmHg TR max ramon: 255.6 cm/sec TR max P.1 mmHg Interpretation Summary Left ventricular systolic function is normal. The estimated ejection fraction is 65 %. Mild diffuse mitral valve thickening. Mild (1+) mitral valve insufficiency. Trivial tricuspid valve insufficiency. Trivial pulmonic valve insufficiency. Right ventricular systolic pressure estimated to be 27 mmHg. Transmitral doppler flow suggestive of impaired relaxation of left ventricle Ordering Physician: Ottoniel Saenz Referring Physician: Ottoniel Saenz Performed By: Rupinder Chan, RDCS, RVT 07/11/18 170 Date Arthur Keith MD CC: Ottoniel Saenz MD Date Dictated: 07/11/18 1254 Date Transcribed: 07/11/181700 Inspector [employer]: Signed 12 LEAD ELECTROCARDIOGRAM Observed: 06/24/2018 Status: F Source: [place] 1:57 PM [facility] [place] [facility] [facility] Cardiovascular Services [address] [place] [address] 12 Lead EKG 06/21/180 MR#: [id number] Acct: [id number] Name: COSTA CARTAGENA Rep #: [id number] : 1965 52 From: Sushil Arellano MD Attending Dr: Status: DEP ER Ordering Dr: Samuel White MD Date: 06/21/18 Location: ED Sex: M C Admitted: Test Reason : CP Blood Pressure : / mmHG Vent. Rate : 063 BPM Atrial Rate : 063 BPM P-R Int : 214 ms QRS Dur : 100 ms QT Int : 438 ms P-R-T Axes : 032 000 005 degrees QTc Int : 448 ms Sinus rhythm with 1st degree A-V block Moderate voltage criteria for LVH, may be normal variant Borderline ECG Confirmed by BEATRIZ HOPSON, SUSHIL ([id number]), web content editor SELMA PALMA ([id number]) on 06/24/2018 1:56:53 PM Referred By: MR Confirmed By:SUSHIL ARELLANO MD 06/24/18 1356 Date Sushil Arellano MD CC: Ottoniel Saenz MD; Samuel White Signed EMERGENCY DEPARTMENT Observed: 06/22/2018 Status: F Source: [place] 12:29 AM [facility] [place] [facility] Medical Records Department [address] [place] [address] Emergency Department Summary 06/21/18 2338 MR#: [id number] Acct: [id number] Name: COSTA CARTAGENA Rep #: [id number] : 1965 52 From: Samuel White MD PCP: Ottoniel Saenz MD Status: DEP ER - ER Visit Summary Date of Service: 06/21/18 Chief Complaint: Chest pain History of Present Illness: The patient is a 52 M presenting for evaluation secondary chest pain. Patient reports that today he had an episode of chest heaviness that lasted about 2-3 seconds. He states he was driving when this happened. There were no associated symptoms with this. Patient states that intermittently over the course the last 2 weeks he has been getting left arm pain, but this does not seem to be associated with any sort of inducible factor or exertion. Denies any shortness of breath, lightheadedness, nausea, palpitations. Patient has a history of well-controlled A. fib, and is on flecainide and metoprolol. His last stress test was about 7 years ago. Physical Examination: Vital signs are within normal limits, patient is afebrile. General: Patient is well-nourished well-developed and in no acute distress. Head: Normocephalic, atraumatic Eyes: Pupils equal round and reactive bilaterally, extra occular motion intact bialterally ENT: Moist mucous membranes Neck: Supple, no lymphadenopathy, no JVD, no meningismus CVS: Heart regular rate and rhythm, no murmurs, rubs or gallops, radial pulses 2+ bilaterally Resp: Respirations nondistressed, lung sounds clear bilaterally Abdomen: Soft, nontender, nondistended, no palpable masses, normal bowel sounds Back: Nontender Extremities: Nontender, atraumatic, active full range of motion, no peripheral edema Skin: warm, no rashes, no petechia Neuro: Alert and oriented x 4, CN 2-12 intact, no lateralizing neurological defecits Psyc: Normal affect Test Results: EKG shows sinus rhythm with a first-degree AV block at a rate of 63. Isoelectric ST segments normal T waves. CBC chemistry troponin unremarkable, chest x-ray unremarkable. Emergency Department Course and Treatment: Patient presented for evaluation secondary to chest pain. Workup as noted above is found to be negative. Patient's heart score at the maximum is 3. I do not believe that he requires admission as his symptoms seem extremely atypical. Patient has no DVT or PE risk factors. 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 Disposition: Discharge Impression: 1. Chest pain This note was generated with [employer] dictation software. It may contain incorrect words, spelling, and punctuation that were not noted in review of the chart prior to signing ED Disposition - Plan for ED Patient: Disposition: Home or Assisted Living Chief Complaint: Chest Pain Diagnosis: Chest pain Instructions: ED Chest Pain NonCardiac Referrals: Arthur Keith MD [STAFF PHYSICIAN] - 5-7 Days What to do if you have Problems For any increased pain, shortness of breath, bleeding, nausea or vomiting, chest pain, or any unexpected problems, contact your Primary Care Provider. Call [facility] ([phone]) or report to the closest Emergency Room. Call 911 if necessary. 06/22/18 0029 <Electronically signed by Samuel White MD> Date Samuel White MD Cosigner Signature (If Indicated): Date CC: Ottoniel Saenz MD CHEST PA AND LATERAL Observed: 06/21/2018 Status: F Source: [place] 10:29 PM [facility] [place] [facility] Imaging Services [address] [place] [address] Chest PA and Lateral MR#: [id number] Acct: [id number] Name: COSTA CARTAGENA Rep #: [id number] : 1965 M 52 From: Brandon Mirza MD PCP: Ottoniel Saenz MD Status: REG ER Study: Chest PA and Lateral Date of Exam: 06/21/18 Exam# [id number] Ordering Dr: Samuel White MD STUDY: X-RAY CHEST REASON FOR EXAM: Male, 52 years old. Chest pain radiating into back TECHNIQUE: PA and lateral views of the chest. COMPARISON: None. FINDINGS: monitor tech leads are present. The lungs are clear and expanded. There is no demonstrated pleural abnormality. Normal size heart. Normal mediastinum and blanca. Normal visualized pulmonary arteries. Normal visualized aortic arch and descending thoracic aorta. Normal visualized thoracic spine. An orthopedic screw is seen overlying the right shoulder area on the edge of the film. There is no demonstrated abnormality of the visualized soft tissue structures of the upper abdomen. RAD/Chest PA and Lateral IMPRESSION: No acute cardiopulmonary disease process is seen. Electronically Signed: Brandon Mirza MD at 22:58 EST , Service support , CC: Ottoniel Saenz MD; Samuel White Inspector Production Plastic Parts: Signed CBC W/DIFF, AUTOMATED Collected: 06/21/2018 Status: F Source: [place] 10:10 [place] [facility] [place] CODE TESTS RESULT OUT OF RANGE REFERENCE UNITS LAB L100.1000 4.4-11.0 K/mm3 Normal WBC 6.6 LAB L100.1200 4.6-6.2 M/mm3 Normal RBC 4.84 LAB L100.1300 13.0-16.5 g/dl Normal HGB 15.0 LAB L100.1400 40-54 % Normal HCT 44.6 LAB L100.1500 80-94 fL Normal MCV 92.1 LAB L100.1600 27.0-32.0 pg Normal MCH 31.0 LAB L100.1700 32-36 g/gl Normal MCHC 33.6 LAB L100.1810 11.6-14.6 % Normal RDW CV 13.3 LAB L100.1820 35.1-43.9 fl High RDW SD 44.0 LAB L100.1900 150-450 K/mm3 Normal PLT 230 LAB L100.2000 6.2-12.0 fl Normal MPV 10.1 LAB L100.2100 47-70 % Normal NEUT% 55.7 LAB L100.2200 19-41 % Normal LY% 34.5 LAB L100.2300 0-10 % Normal MONO% 7.7 LAB L100.2400 0-5 % Normal EO% 1.4 LAB L100.2500 0-1 % Normal BASO% 0.5 LAB L100.2550 0.0-0.9 % Normal IM GRAN % 0.200 Result Comment: IG% - Immature Granulocytes (promyelocytes, myelocytes and metamyelocytes) > 1% indicates that a LEFT SHIFT is Present. LAB L100.2620 2.0-7.7 X10 3/uL Normal Absolute Neut 3.7 LAB L100.2720 0.83-4.51 X10 3/ul Normal Absolute Lymph 2.28 Performed By: #### L100.0100 #### [facility] [address] [place], [place] [address]. [place], [address] BASIC METABOLIC Collected: 06/21/2018 Status: F Source: [place] PROFILE (B[place]) 10:10 PM [facility] [place] CODE TESTS RESULT OUT OF RANGE REFERENCE UNITS LAB L501.0100 74-106 mg/dL Normal GLU 81 Result Comment: Please note revised GLUCOSE reference range effective 2017. LAB L501.1000 7-18 mg/dL High BUN 26 LAB L501.1100 0.70-1.30 mg/dL Normal CREAT,SERUM 0.98 Result Comment: The validity of the calculated GFR AND GFRAA in patients over 70 years has not been determined. Clinical correlation is essential. LAB L501.1110 >60 mL/min Normal EST GFR 86 Result Comment: Non- GFR Calc LAB L501.1115 >60 mL/min Normal EST GFR - AA 103 Result Comment: GFR Calc LAB L501.1255 ml/min Normal Estimated CRCL 101.91 LAB L501.1300 10-20 RATIO High BUN/CRE 26.4 LAB L501.2200 8.5-10 mg/dL .1 CA Normal 9.3 LAB L501.5300 136-14 mmol/L 5 NA Normal 141 LAB L501.5600 3.5-5. mmol/L 1 K Normal 4.0 LAB L501.5900 98-107 mmol/L CL Normal 104 LAB L501.6100 21.0-3 mmol/L 2.0 CO2 Normal 29.0 LAB L501.6200 5-15 GAP Normal 8 Performed By: #### L500.2500, L501.4010 #### [facility] [address] [place], [address] TROPONIN-I Collected: 06/21/2018 Status: F Source: [place] 10:10 PM [facility] [place] CODE TESTS RESULT OUT OF RANGE REFERENCE UNITS LAB L501.4010 <0.045 ng/mL Normal < 0.015 TROPONIN-I Result Comment: TROPONIN-I EXPECTED VALUES <0.045 Negative 0.045 - 0.590 Consistent with Cardiac Damage > OR = 0.600 Critical Value Not every elevated troponin is indicative of NV. These values should be used with clinical judgement in examining the patient's clinical picture for diagnosis. To establish a diagnosis of NV versus myocardial injury, there must be a demonstrated rise and/or fall in the troponin values, in addition to ischemic symptoms, EKG changes, new regional wall motion abnormality, and/or angiographical evidence. PLEASE NOTE: REFERENCE RANGES EDITED 17 Performed By: #### L500.2500, L501.4010 #### [facility] [address] [facility] [place], [address] HISTORY AND PHYSICAL Observed: 05/07/2018 Status: F Source: [place]AM 5:52 AM [facility] [place] [facility] Medical Records Department [address] [place] [address] History and Physical 05/06/18 0616 MR#: [id number] Acct: [id number] Name: COSTA CARTAGENA Rep #: [id number] : 1965 52 From: Rene Quintana MD PCP: Ottoniel Saenz MD Status: [facility] Location: EN Problem List (1) Screening for intestinal cancer Status: Acute History of Present Illness Date of Admission: 05/06/18 The patient is a 52 year old M screening for intestinal cancer. He has never had a previous colonoscopy. He has had some mild hemorrhoidal disease. No abdominal pain. No bright red blood per rectum or melena. No direct family members with colon cancer. He does have an uncle had colon cancer that I assisted. He otherwise states that he enjoys good health. Past Medical History Past Medical History (Chronic Problems): Chronic Problems (Last Reviewed 09/24/17 @ 12:46 by Di MilnerNovalere FP) Sinus bradycardia (Chronic) Syncope (Chronic) Valvular heart disease (Chronic) Nonrheumatic mitral valve prolapse (Chronic) HLD (hyperlipidemia) (Chronic) Paroxysmal atrial fibrillation (Chronic) Hypokalemia (Chronic) Medical History: Medical History (Last Reviewed 09/24/17 @ 12:46 by [employer] Over Me) Nonrheumatic mitral valve prolapse (Chronic) I34.1 HLD (hyperlipidemia) (Chronic) E78.5 Paroxysmal atrial fibrillation (Chronic) I48.0 Hypokalemia (Chronic) E87.6 Allergies amoxicillin Allergy (Verified 09/24/17 12:46) Unknown Home Medications: Ambulatory Orders Medication Instructions Recorded Surgical History: Surgical History (Last Updated 09/24/17 @ 12:45 by Di Holman) History of cholecystectomy Z90.49 Smoking Status: Never smoker Review of Systems Constitutional: Denies: Anorexia HEENT: Denies: Difficulty Swallowing Cardiovascular: Denies: Chest Pain Respiratory: Denies: Cough Gastrointestinal: Denies: Abdominal Pain Endocrine: Denies: Change in Body Habitus VTE Information - Inpt Only VTE Present on Admission: No Patient Problems: Active and Suspected Problems (Last Reviewed 09/24/17 @ 12:46 by [employer] Me) Screening for intestinal cancer (Acute) - Physical Exam General: Alert, Oriented x3, Cooperative, No apparent distress HEENT: Atraumatic Oral: Moist Mucosa Neck: Supple, Negative Carotid Bruits Lungs: Clear to auscultation Cardiovascular: Regular rate, Regular Rhythm Abdomen: Bowel Sounds Present, Soft, Non Tender, Non-Distended Extremities: No Calf Tenderness Psych/Mental Status: Normal Affect Vital Signs Temp Pulse Resp BP Pulse Ox 96.6 F L 80 16 132/99 H 98 05/06/18 05:44 05/06/18 05:44 05/06/18 05:44 05/06/18 05:44 05/06/18 05:44 Oxygen Delivery Method Room Air Weight: 231 lb Body Mass Index (BMI) 30.4 Assessment/Plan All Active Problems (Last Reviewed 09/24/17 @ 12:46 by Di Holman) Screening for intestinal cancer (Acute) I recommend a screening colonoscopy. The patient is aware of the technique, benefits, risks and alternatives. He has had an opportunity to ask and have questions answered. We will proceed at his discretion. Primary care physician Dr. Ottoniel Quintana M.D., F.A.C.S. 05/07/18 0552 <Electronically signed by Rene Quintana MD> Date Rene Quintana MD Cosign Signature: Date (if applicable) CC: Ottoniel Saenz MD; Rene Quintana MD Signed OPERATIVE REPORT - Observed: 05/06/2018 Status: F Source: [place] ENDOSCOPY 6:55 AM [facility] Medical Records Department [address] [place] [address] Operative Report - Endoscopy MR#: [id number] Acct: [id number] Name: COSTA CARTAGENA Rep #: [id number] : 1965 52 From: Rene Quintana MD PCP: Ottoniel Saenz MD Status: [facility] Patient Name: Costa Cartagena Procedure Date: 05/06/2018 6:15 AM Date of : 1965 Age: 52 Procedure: Colonoscopy Indications: Screening for colorectal malignant neoplasm Providers: Rene Quintana MD Referring MD: Rene Quintana MD Medicines: Midazolam 4.5 mg IV, Meperidine 100 mg IV Patient Profile: Last Colonoscopy: none. The patient's first colonoscopy is today. Complications: No immediate complications. Procedure: Pre-Anesthesia Assessment: - Prior to the procedure, a History and Physical was performed, and patient medications and allergies were reviewed. The patient's tolerance of previous anesthesia was also reviewed. The risks and benefits of the procedure and the sedation options and risks were discussed with the patient. All questions were answered, and informed consent was obtained. Prior Anticoagulants: The patient has taken no previous anticoagulant or antiplatelet agents. ASA Grade Assessment: I - A normal, healthy patient. After reviewing the risks and benefits, the patient was deemed in satisfactory condition to undergo the procedure. After I obtained informed consent, the scope was passed under direct vision. Throughout the procedure, the patient's blood pressure, pulse, and oxygen saturations were monitored continuously. The colonoscope was introduced through the anus and advanced to the cecum, identified by appendiceal orifice and ileocecal valve. The colonoscopy was performed without difficulty. The patient tolerated the procedure well. The quality of the bowel preparation was good. The ileocecal valve was photographed. Moderate Sedation: Moderate (conscious) sedation was personally administered by the endoscopist. The following parameters were monitored: oxygen saturation, heart rate, blood pressure, and response to care. Total physician intraservice time was 15 minutes. Scope In: 6:32:24 AM Scope Withdrawal Time 0 hours 13 minutes 31 seconds Scope Out: 6:48:20 AM Total Procedure Duration Time 0 hours 15 minutes 56 seconds Findings: The perianal and digital rectal examinations were normal. A 4 mm polyp was found in the cecum. The polyp was sessile. The polyp was removed with a cold biopsy forceps. Resection and retrieval were complete. A 5 mm polyp was found in the distal sigmoid colon. The polyp was sessile. The polyp was removed with a hot snare. Resection and retrieval were complete. A 5 mm polyp was found in the rectum. The polyp was sessile. The polyp was removed with a hot snare. Resection and retrieval were complete. A few diverticula were found in the sigmoid colon. Impression: - One 4 mm polyp in the cecum, removed with a cold biopsy forceps. Resected and retrieved. - One 5 mm polyp in the distal sigmoid colon, removed with a hot snare. Resected and retrieved. - One 5 mm polyp in the rectum, removed with a hot snare. Resected and retrieved. - Diverticulosis in the sigmoid colon. Recommendation: - Discharge patient to home. - Resume previous diet. - Continue present medications. - Telephone my office for pathology results in 1 week. - Repeat colonoscopy in 3 years for surveillance. Procedure Code(s): --- Professional --- 43671, Colonoscopy, flexible; with removal of tumor(s), polyp(s), or other lesion(s) by snare technique 31348, 59, Colonoscopy, flexible; with biopsy, single or multiple 83113, 59, Moderate sedation services provided by the same physician or other qualified health home care associate performing the diagnostic or therapeutic service that the sedation supports, requiring the presence of an independent trained observer to assist in the monitoring of the patient's level of consciousness and physiological status; initial 15 minutes of intraservice time, patient age 5 years or older Diagnosis Code(s): --- Professional --- Z12.11, Encounter for screening for malignant neoplasm of colon D12.0, Benign neoplasm of cecum D12.5, Benign neoplasm of sigmoid colon K62.1, Rectal polyp K57.30, Diverticulosis of large intestine without perforation or abscess without bleeding CPT copyright 2017 [employer]. All rights reserved. The codes documented in this report are preliminary and upon heavy line technician review may be revised to meet current compliance requirements. Rene Quintana MD 05/06/2018 6:54:56 AM This report has been signed electronically. Number of Addenda: 0 Note Initiated On: 05/06/2018 6:15 AM 05/06/1855 Date Rene Quintana MD Cosigner Signature: Date (if indicated) CC: Ottoniel Saenz MD; Rene Quintana MD Date Dictated: 05/06/18614 Date Transcribed: Inspector Production Plastic Parts: DALLIN Signed COLON BIOPSY (CHOOSE Observed: 05/06/2018 Status: F Source: [place] SITE) 12:00 AM [facility] [place] Patient: COSTA CARTAGENA : 1965 (52/M) Acct Num: [id number] Phys: Rene Quintana MD Unit Num: [id number] Loc: EN Specimen: [id number] Received: 05/06/18 1351 Spec Type: COLON BX TISSUES 1 TISSUES: A. Cecum, NOS B. Sigmoid colon biopsy C. Rectum, NOS GROSS DESCRIPTION A - Received in fixative is one container labeled with the patient's name and designated biopsy of cecum polyp. The specimen consists of multiple irregular fragments of light barillas soft tissue that in aggregate measure 1.5 x 0.6 x 0.1 cm. The specimen is totally submitted in one cassette. B - Received in fixative is one container labeled with the patient's name and designated distal sigmoid polyp. The specimen consists of one irregular fragment of light barillas soft tissue that measures 0.3 x 0.3 x 0.1 cm. The specimen is totally submitted in one cassette. C - Received in fixative is one container labeled with the patient's name and designated rectal polyp. The specimen consists of a piece of barillas-pink polyp measuring 0.3 x 0.3 x 0.1 cm. The entire specimen is submitted in one cassette. / RUFINO:vinay 05/06/18 TC:1 CPT: 02154 x3 HEADER OPERATION: Colonoscopy (MOD) PRE-OP DIAGNOSIS: Screening TISSUE SUBMITTED: A - Biopsy of cecum polyp, B - Polypectomy of distal sigmoid polyp, C - Polypectomy of rectal polyp MICROSCOPIC DESCRIPTION Slides are reviewed. MICROSCOPIC DIAGNOSIS A. Cecum polyp, biopsy: Tubular adenoma. B. Distal sigmoid polyp, polypectomy: Hyperplastic polyp. C. Rectal polyp, biopsy: Consistent with serrated adenoma (mixed tubular adenoma and hyperplastic polyp). RUFINO:vinay 05/07/18 Signed Gigi Orta 05/07/18 <signature on file> Performed By: #### PCOLBX #### [facility] [address] [place], [place], [id number] INITAL EVALUATION (1) Observed: 03/20/2018 Status: F Source: [place] - PT 5:31 PM [facility] [place] [facility] [address] [place] [address]. [address] [place], [place] [address] Fax REHABILITATION SERVICES INITIAL EVALUATION MR#: [id number] Acct: [id number] Name: COSTA CARTAGENA Rep #: [id number] : 1965 52 From: Danita Mathews PT, Cert. MDT Referring Dr.: Ottoniel Saenz MD Status: REG RCR Insurance: [facility] SELF PAY INSURANCE Patient's Visit Information COSTA CARTAGENA is a 52 year old M referred to Physical Therapy by Ottoniel Saenz with a diagnosis of RIGHT CALF STRAIN - MEDIAL. Date of Evaluation: 03/20/18 Physical Therapist: Danita Mathews - Visit Plan Frequency: 2-3x /Week Duration: 4-6 Weeks Plan: TRANSFER OF CARE TO [facility]. PT. THIS POC TO BE AMMENDED BY SAID PT APPROPRIATE. CURRENT PLAN IS FOR RIGHT LE US, ROM, STRETCHING AND STRENGTHEING NEEDED TO HELP MEET SET GOALS. 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 Disability: NO. Present symptoms: CENTER OF THE CALF. NO NUMBNESS OR TINGLING. PATIENT REPORTS HE DID FEEL THE OLD KNOT IN THE BACK OF HIS RIGHT THIGH WHILE BATTING JUST ABOUT 5 MINUTES BEFORE THIS HAPPEND WITH HIS CALF. Present since: LAST NIGHT. Pain Scale: WORST 10/10, LEAST 0/10. Currently: 07/25. Commenced as a result of: PLAYING SOFTBALL - CHASING A BALL. TURNED AND IT POPPED. Symptoms at onset: SAME. Worse: PULLING FOOT UP AND WALKING. TOUCHING IT. Better: SITTING, EXTENDING FOOT. LYING DOWN WITH WEIGHT ON RUSH. Disturbed sleep: YES. Previous history/Previous treatment: HAMSTRING STRAIN ABOUT 3 YEARS AGO TREATED WITH PHYSICAL THERAPY. Gait: PAIN AND LIMP ON RIGHT LE WITH WALKING. Accidents: NO. Unexplained weight loss: NO. Imaging: NONE. PMH: RIGHT SHOULDER SURGERY 1987. AFIB. OTHER: PATIENT REPORTS HIS FAMILY HAS A BLOOD CLOTTING DISORDER AND HE ISN'T SURE IF HE HAS IT OR NOT. - Objective THIS PATIENT AMBULATES INDEP'LY INTO PT TODAY LIMPING ON HIS RIGHT LE AND WEARING A COMPRESSION GARMET. HE IS NOT USING ANY ASSISTIVE DEVICES. THERE IS DECREASED MUSCLE TONE OF THE RIGHT CALF COMPARED TO THE LEFT AND TENDERNESS AND BRUISING ALONG THE MEDIAL HEAD OF THE GASTROC. LLE ROM AND STRENGTH IS WNL. RIGHT LE STRENGTH: HIP 4/5, KNEE EXT 4/5, KNEE FLEX 4/5, ANKLE DORSI FLEX AT LEAST 3+/5 BUT DIFFICULT TO ASSESS DUE TO CALF PAIN WITH ACTIVE ROM OF RIGHT ANKLE INTO FULL DORSIFLEXION. PLANTAR FLEX 2-/5 AND TESTING PROVOKES PAIN. PATIENT IS ABLE TO ACTIVELY WIGGLE ALL TOES. MORRIS LE LIGHT TOUCH SENSATION IS INTACT AND SYMMETRICAL. THE RIGHT CALF IS REALLY NOT HYPERSENSATIVE TO LIGHT TOUCH BUT THERE IS SWELLING AND DEEPER PALPATION OF THE RIGHT MEDIAL GASTROC PROVOKES PAIN. HE HAS SOME TENDERNESS THROUGH OUT THE BODY OF THE MEDIAL AND LATERAL GASTROC BUT NOT MUCH MEDIALLY. HE IS NOT TENDER IN HIS HAMSTRINGS. RIGHT LE ROM IS WFL BUT PAIN IS PROVOKED WITH ANKLE AROM TESTING. TREATMENT: PATIENT WAS SEEN TODAY FOR NON-THERMAL US TO THE RIGHT MEDIAL CALF WITH PATIENT SUPINE FOLLOWED BY GENTLE STICK ROLL-OUT AND HEP INSTRUCTION FOR QS'S, AROM KNEE FLEXION, AND GENTLE AROM OF LEFT FOOT AND ANKLE. PATIENT HAS A FOAM ROLLER THAT HE MAY DO GENTLY WELL. HOME INSTRUCTION FOR REST, ICE, ELEVATION AND GENTLE ROM. PATIENT COMMUNCIATED A GOOD UNDERSTANDING OF ALL INSTRUCTIONS AFTER GIVEN. CASE CONFERENCE WITH [facility] PT TODAY. - Goals Goal 1:: DECREASE C/O RIGHT CALF PAIN Goal Time Frame: 4-6 Weeks Goal 2:: INCREASE PAINFREE ROM OF RIGHT FOOT AND ANKLE TO ALLOW FOR IMPROVED ADL'S Goal Time Frame: 4-6 Weeks Goal 3:: INCREASE FUNCTIONAL STRENGTH OF RIGHT LE TO ALLOW FOR RETURN TO PRIOR LEVEL OF FUNCTION. Goal Time Frame: 4-6 Weeks Goal 4:: INDEP GAIT WITHOUT DEVIATION Goal Time Frame: 4-6 Weeks Goal 5:: INDEP HEP. Goal Time Frame: 4-6 Weeks - Rehabilitation Potential Rehabilitation Potential: Good - Anticipated Interventions Patient/Client Instruction: Educate patient on: Condition, Plan of Care, Risk Factors, Benefits of Fitness Program For the Purpose of:: To improve self management Therapeutic Exercise to Include: Strength training, Agility training, Flexibilty training, Gait and locomotor training, Passive ROM, Active ROM For the Purpose of:: To decrease pain, To increase ROM, To improve muscle performance and motor function, To increase tolerance to activity/condition/position, To improve ability of physical actions for home/community/work/leisure, To improve gait and locomotor functions Manual Therapy Techniques to Include: Passive ROM, Soft tissue mobilization For the Purpose of:: To decrease pain, To increase ROM, To improve nutrient delivery to tissue TENS: Yes Cryotherapy (ice pack, ice massage): Yes Ultrasound (thermal/non thermal): Yes - NON-THERMAL X 2-3 DAYS For the Purpose of:: To decrease pain, To decrease swelling/inflammation, To increase ROM, To improve nutrient delivery to tissue Thank you for the opportunity to evaluate your patient. For Medicare and Medicare HMO plans, please review the plan of care and approve it. It will need to be FAXED BACK to us at [phone] for Medicare purposes. Please let me know if there are questions or concerns regarding this plan of care. Physician Signature: Date: <Electronically signed by Danita Mathews PT, Cert. MDT> 03/20/18 1731 CC: Ottoniel Saenz MD IRWIN Signed For Medicare only, by signing this I certify the plan of care. Physicians Signature Date CARDIOLOGY VISIT Observed: 09/25/2017 Status: F Source: [place] 2:57 PM [facility] [place] [facility] [address] [place] [address] OFFICE VISIT Date of Service: 09/24/17 MR#: [id number] Acct: [id number] Name: COSTA CARTAGENA Rep #: [id number] : 1965 Provider: HIGINIO Rivera Age/Sex: 51/M [place] [facility] [place]: Signed HPI HPI Details: COSTA CARTAGENA, is a 51 M who presents to the office today for a cardiovascular outpatient follow-up. Patient is a history of paroxysmal atrial fibrillation, sinus bradycardia, mitral valve prolapse, and neurogenic syncope. Pt. denies chest, arm, jaw, or neck discomfort. 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 Pt. denies symptoms of CHF, palpitations, lightheadedness, dizziness, near syncope, or syncopal episodes. Pt. denies edema or claudication issues. Pt. denies orthopnea, PND, fever, chills, blood in urine, blood in stool, myalgia, or unexplainable fatigue. Intake Vital Signs09/24/17 Height 6 ft 09/24/17 Weight: 234 lb 09/24/17 Body Mass Index (BMI) 31.7 09/24/17 Blood Pressure 118/76 Intake Visit Reasons: 6 M FU Allergies amoxicillin Allergy (Verified 09/24/17 12:46) Unknown Medications metoprolol succinate ER 25 mg tablet,extended release 24 hr 25 mg PO QDAY #90 tab 06/25/17 [Rx Confirmed 08/03/17] aspirin 81 mg tablet,delayed release 81 mg PO QDAY 08/03/17 [History Confirmed 08/03/17] flecainide 100 mg tablet 100 mg PO BID tab 08/03/17 [History Confirmed 08/03/17] selenium 200 mcg tablet,delayed release 200 mcg PO QDAY ea 08/03/17 [History Confirmed 08/03/17] potassium chloride ER 10 mEq tablet,extended release 20 meq PO QDAY #90 tab 08/27/17 [Rx Confirmed 09/24/17] Ejection fraction %: 60 to 64 PFSH Medical History Nonrheumatic mitral valve prolapse (Chronic) HLD (hyperlipidemia) (Chronic) Paroxysmal atrial fibrillation (Chronic) Hypokalemia (Chronic) Surgical History History of cholecystectomy (Resolved) Family History Father Myocardial infarction Hypertension CAD (coronary artery disease) Mother Diabetes Grandfather Myocardial infarction Social History Smoking Status: Never smoker alcohol intake: never substance use type: does not use ROS Const Const: Negative for fatigue, weakness, body ache, fever(s) or chills ENT ENT: Negative for dizziness Cardio Chest Pain: No Palpitations: No Edema: None Muscle aches with walking: None Resp Respiratory: Negative for SOB with activity, SOB at rest, SOB orthopnea\SOB lying down or paroxysmal nocturnal dyspnea GI GI: Negative nausea, black,tarry stools, bright, red blood in stools or vomiting blood/hematemesis : Negative for hematuria or frequent nighttime urination/ nocturia Musc Musc: Negative for muscle aches/ myalgia Neuro Neuro: Negative for weakness, dizziness, lightheadedness, near syncope, syncope or orthostatic symptoms Endo Endo: Negative for fatigue Cardiology Exam Const Appearance: cooperative, healthy appearing, comfortable and no acute distress Orientation: alert, awake and oriented x3 Head Head: normal to inspection Mouth: oral mucosae normal Neck Neck: no JVD and normal visual inspection Carotids: normal carotid upstroke Chest Chest inspection: normal inspection of the chest and normal respiratory effort Auscultation: Bilateral: Clear to Auscultation Cardio Rate: regular rate Rhythm: regular rhythm Heart sounds: S2 normal and murmur (LLSB systolic ); negative rub or gallop Murmur: Grade 2/6 GI GI: normal to inspection Neuro General: alert, awake, oriented x3 and CN's II-XI intact bilaterally Skin Skin: no rashes or lesions noted Extremities Pulses: Normal: Right Posterior Tibial Pulse, Left Posterior Tibial Pulse, Right Radial Pulse, Left Radial Pulse Lower Extremity Edema: None: Bilateral Psych Psychological: normal affect Supplemental Info Stress test from July 2009 was negative for infarct or stress-induced myocardial ischemia. Echocardiogram from August 2014 showed an estimated ejection fraction of 60%, mild mitral valve prolapse, mild diffuse mitral thickening, mild mitral valve insufficiency, mild tricuspid valve insufficiency, trivial pulmonic valve insufficiency, and an RVSP of 29 mmHg. Assessment AND Plan 1. Paroxysmal atrial fibrillation I48.0 Plan - EVELIA Flood Patient feels this was due to low potassium. He appears to maintain regular rhythm. He did inquire regarding possibility of stopping flecainide since he has had no issues. This will be discussed further with Dr. Keith. Patient's heart rate is well controlled. Patient is not on any oral anticoagulation. At this time he will continue current medication therapy which includes flecainide and metoprolol. 2. Valvular heart disease I38 Hai - EVELIA Flood Patient's echocardiogram from August 2014 showed an ejection fraction of 60%, mild mitral valve prolapse, mild diffuse mitral valve thickening, mild mitral valve insufficiency, and mild tricuspid valve insufficiency. Patient denies any shortness of breath and states that his activity level has remained stable. We will continue to monitor his through history, exam, repeat echocardiogram as necessary. 3. Mixed hyperlipidemia E78.2 Hai - EVELIA Flood Patient's most recent lipid panel from September 2017 show cholesterol: 132, HDL: 47, LDL: 65, and triglycerides: 101. Patient will continue with current cholesterol- lowering medication. He will repeat both liver and lipid panel in approximately 6 months. 4. Vasovagal syncope R55 Plan - EVELIA Flood Patient states this occurred prior to his diagnosis of atrial fibrillation. He describes the event that he would get extreme leg cramps which he attributes to low potassium which would cause a vasovagal syncopal episode. He has not had any recurrence of this. She denies any recurrent leg cramps. We will continue to monitor this. 5. Sinus bradycardia R00.1 Plan - EVELIA Flodo Patient's heart rate is well controlled. He denies any presyncopal episodes. We will continue current medications which include beta-adele. We will continue to monitor his heart rate. Plan Detail Additional Comments - EVELIA Flood Discussed the above patient with Dr. Arellano in Dr. Keith's absence, he agrees with the plan of care. Thank you for allowing us to participate in the patients plan of care, if you have any questions please do not hesitate to call. This note was generated using a voice recognition system and there may be incorrect words, spelling or punctuation that were not noted when reviewing the office note prior to saving. Follow Up 10 Months (PFM) Coding Level of Care Code Off vis,est,level 3 Diagnoses Paroxysmal atrial fibrillation I48.0 Valvular heart disease I38 Mixed hyperlipidemia E78.2 Hyperlipidemia type: mixed hyperlipidemia Vasovagal syncope R55 Syncope type: vasovagal syncope Sinus bradycardia R00.1 Coding Level of Care Code Off vis,est,level 3 Diagnoses Paroxysmal atrial fibrillation I48.0 Valvular heart disease I38 Mixed hyperlipidemia E78.2 Hyperlipidemia type: mixed hyperlipidemia Vasovagal syncope R55 Syncope type: vasovagal syncope Sinus bradycardia R00.1 09/25/17 0737 <Electronically signed by Aiden ALTAMIRANO> Date Aiden ALTAMIRANO 09/25/17 1457<Electronically signed by Sushil Arellano MD> Cosigner Signature: Date (if applicable) Sushil Arellano MD CC: Ottoniel Saenz MD LIVER PROFILE Collected: 09/24/2017 Status: F Source: [place] 11:[place] [facility] [place] Order Comment: Order Date: 11/03/16 Order Info: [id number] - *Hepatic Function Panel Order Info: [id number] - *Lipid Profile CC PCP Comments: 12 hours fasting, may have water. TYPE CODE TESTS RESULT OUT OF RANGE REFERENCE UNITS LAB L501.1500 6.4-8.2 g/dL Normal T PROT 7.4 LAB L501.1800 3.2-5.0 g/dL Normal ALB 4.0 LAB L501.1950 2.2-4.2 g/dL Normal GLOB 3.4 LAB L501.4100 15-37 U/L Normal AST 33 LAB L501.4305 45-117 U/L Normal ALK P 76 LAB L501.4405 16-61 U/L High ALT 65 Result Comment: Please note revised ALT reference range effective 2017. LAB L501.4600 0.20-1.00 mg/dL Normal T BILI 0.70 LAB L501.4700 0.00-0.30 mg/dL Normal D BILI 0.20 Performed By: #### L500.3400 #### [facility] [place], [address] LIPID PROFILE Collected: 09/24/2017 Status: F Source: [place] 11:[place] AM [facility] [place] Order Comment: Order Date: 11/03/16 Order Info: [id number] - *Hepatic Function Panel Order Info: [id number] - *Lipid Profile CC PCP Comments: 12 hours fasting, may have water. TYPE CODE TESTS RESULT OUT OF RANGE REFERENCE UNITS LAB L501.4900 200 mg/dL Normal CHOL 132 Result Comment: <200 mg/dL Desirable 200-240 mg/dL Borderline >240 mg/dL High Risk LAB L501.5000 mg/dL Normal TRIG 101 Result Comment: The drugs N-Acetylcysteine and Metamizole may falsely depress this assay. Serum Triglycerides Reference Interval Normal <150 mg/dL Borderline high 150 - 199 mg/dL High 200 - 499 mg/dL Very High > or = 500 mg/dL LAB L501.6400 mg/dL Normal HDL 47 Result Comment: The drugs N-Acetylcysteine and Metamizole may falsely depress this assay. Reference Range HDL <40 mg/dL Low HDL Cholesterol HDL >or= 60 mg/dL High HDL Cholesterol LAB L501.6500 0-130 mg/dL Normal LDL 65 LAB L501.6600 5-40 mg/dL Normal VLDL 20 Performed By: #### L500.4100 #### [facility] [address] [place], [address] ALLERGIES ALLERGIES DATE TYPE / CODE NAME / CODE REACTION SEVERITY SOURCE 07/31/2018 Drug amoxicillin/ Unknown Unknown [facility] Allergy/4160 [id number]([facility] [address]11(SNOMED XNORM) Repository CT) 07/31/2018 Drug guaifenesin/ elevated BP and SV [facility] Allergy/4160 [id number]([facility] [address]55(SNOMED XNORM) Repository CT) ENCOUNTERS ENCOUNTERS ADMIT/DISCHARGE ACCOUNT ADMITTING ENCOUNTER LOCATION SOURCE NUMBER CLASS 07/31/2018 [id number] Ambulatory [place] 6 [facility] ing:LAB Repository 07/31/2018/ [id number] Ambulatory BMSBuilding:B [place] 6 [facility] Repository 07/26/2018 [id number] Ambulatory BMSBuilding:B [place] 7 [facility] Repository 07/11/2018 [id number] Ambulatory [place] 3 [facility] ing:[facility]S Repository 07/11/2018 [id number] Ambulatory BMSBuilding:W [place] 0 [facility] Repository 06/21/2018/ [id number] Emergency [place] 2 [facility] ing:ED Repository 05/06/2018/ [id number] Ambulatory [place] 8 [facility] ing:ENRoom: Repository AC10 05/06/2018/ [id number] Ambulatory BMSBuilding:B [place] 8 5 [place].[facility] Repository 04/18/2018/ [id number] Ambulatory [place] 2 [facility] ing:PT Repository 03/21/2018/ [id number] Ambulatory BMSBuilding:B [place] 4 [facility] Repository 09/24/2017/ [id number] Ambulatory BMSBuilding:B [place] 0 [facility] Repository 09/24/2017 [id number] Ambulatory BMSBuilding:B [place] 9 [facility] Repository 09/24/2017 [id number] Ambulatory [place] [facility] ing:LAB Repository PAYERS PAYERS ENCOUNTER GUARANTOR PAYER SUBSCRIBER SOURCE 07/31/2018 COSTA L Primary COSAT Guo [id number] Insurance:MEDICAL KLINEDOB: [facility] [id number] Number: Repository [id number]: [phone] [id number] [phone] () Date:9091-74-94HR[address] [address]BF: 07/31/2018 Secondary NOT GIVENUNK [place] Insurance:SELF PAY [facility] Number: Effective Repository Date:2018-07-31 07/31/2018 COSTA L Primary COSTA Adame [place] [id number] Insurance:MEDICAL KLINEDOB: [facility] 5505[place] Number: Repository [id number]: [phone] [id number] [phone] () Date:6543-79-72YA [address] [address]IM: 07/31/2018 Secondary NOT GIVENUNK [place] Insurance:SELF PAY [facility] Number: Effective Repository Date:2018-07-31 07/26/2018 COSTA L Primary COSTA L [place] [id number] Insurance:MEDICAL KLINEDOB: [facility] 8504[place] Number: Repository [id number]: [phone] [id number] [phone] () Date:1657-98-33VZ[address] [address]RF: 07/26/2018 Secondary NOT GIVENUNK [place] Insurance:SELF PAY [facility] Number: Effective Repository Date:2018-07-26 07/11/2018 COSTA L Primary COSTA L [place] [id number] Insurance:MEDICAL KLINEDOB: [facility] [id number] Number: Repository [address]Vbr: 419 [id number] [phone] () Date:8589-58-85UJ [address] [address]KK: 07/11/2018 Secondary NOT GIVENUNK [place] Insurance:SELF PAY [facility] Number: Effective Repository Date:2018-06-26 07/11/2018 COSTA L Primary COSTA L [place] [id number] Insurance:MEDICAL KLINEDOB: [id number] [place] Number: Repository [id number]: 419 [id number] [phone] () Date:4496-13-30TY[address] [address]PP: 07/11/2018 Secondary NOT GIVENUNK [place] Insurance:SELF PAY [facility] Number: Effective Repository Date:2018-07-11 06/21/2018 COSTA L Primary COSTA L [place] [id number] Insurance:MEDICAL KLINEDOB: [id number] [place] Number: Repository [address]Uxu: 419 [id number] [phone] () Date:8206-61-34YQ[address] [address]XH: 06/21/2018 Secondary NOT GIVENUNK [place] Insurance:SELF PAY [facility] Number: Effective Repository Date:2018-06-21 05/06/2018 COSTA L Primary COSTA L [place] [id number] Insurance:MEDICAL KLINEDOB: [facility] [id number] Number: Repository [id number]: 419 [id number] [phone] (HP) Date:1093-97-83NP [address] [place] [address]ZW: 05/06/2018 Secondary NOT GIVENUNK [place] Insurance:SELF PAY [facility] Number: Effective Repository Date:2018-03-22 05/06/2018 COSTA L Primary COSTA Adame [place] [id number] Insurance:MEDICAL KLINEDOB: [facility] 9411-47-93WAX[place], [place] Number: Repository [id number]: 419 [id number] [phone] (HP) Date:2613-67-48OW [address] [place] [address]SW: 05/06/2018 Secondary NOT GIVENUNK [place] Insurance:SELF PAY [facility] Number: Effective Repository Date:2018-05-06 04/18/2018 COSTA L Primary COSTA Adame [place] [id number] Insurance:MEDICAL KLINEDOB: [facility] [id number], [place] Number: Repository [address]Gcf: 419 [id number] [phone] () Date:0121-08-66XE [address] [address]YU: 04/18/2018 Secondary NOT GIVENUNK [place] Insurance:SELF PAY [facility] Number: Effective Repository Date:2018-03-20 03/21/2018 COSTA L Primary COSTA Adame [place] [id number] Insurance:MEDICAL KLINEDOB: [facility] 7810-19-17KGSHutch[place], [place] Number: Repository [id number]: 419 [id number] [phone] () Date:7934-89-92KN [address] [place] [address]GF: 03/21/2018 Secondary NOT GIVENUNK [place] Insurance:SELF PAY [facility] Number: Effective Repository Date:2018-03-21 09/24/2017 COSTA Primary COSTA Guo [id number] Insurance:MEDICAL KLINEDOB: [facility] [id number], [place] Number: Repository [id number]: 419 [id number] [phone] () Date:4837-67-47GL [address] [address]GR: 09/24/2017 Secondary NOT GIVENUNK [place] Insurance:SELF PAY [facility] Number: Effective Repository Date:2017-06-17 09/24/2017 Costa L Primary Costa L [place] [id number] Insurance:MEDICAL KlineDOB: [facility] [id number] Number: Repository [id number]: 419 [id number] [phone] () Date:4004-42-74FN [address] [address]ZB: 09/24/2017 Secondary NOT GIVENUNK [place] Insurance:SELF PAY [facility] Number: Effective Repository Date:2017-09-24 09/24/2017 Costa L Primary Costa L [place] [id number] Insurance:MEDICAL KlineDOB: [facility] [id number] Number: Repository [id number]: 419 [id number] [phone] () Date:8094-23-28HW [address] [address]ES: 09/24/2017 Secondary NOT GIVENUNK [place] Insurance:SELF PAY [facility] Number: Effective Repository Date:2017-09-24
== END ==
PROVIDERS: Family Provider Family Medicine; PCP Family Medicine; Referring Provider Internal Medicine Cardiovascular Disease; Visit Provider Internal Medicine Cardiovascular Disease
DX: E78.2 Mixed hyperlipidemia (principal)
CPT/HCPCS: 36415; 80061; 80076

== ENCOUNTER → 2018-09-06 11:51 | Outpatient (CLI) | payer OTHER, SELFPAY ==
[2018-07-31 14:06] VITALS: BMI 31.6
--- NOTE | 2018-09-06 19:07 | STRESSREP ---
Stress Test Report Date: 09-06-2018 Procedure: Exercise tolerance test Indications: Chest pain; paroxysmal atrial fibrillation Consent: Per the patient Procedure: The patient exercised on a Ham protocol for 7 minutes completing Stage II and 1 minute of Stage III achieving a peak heart rate of 150 bpm (88 % predicted maximal heart rate) with a peak blood pressure 240/90 mmHg and a peak MET capacity of approximately 9 MET's. The baseline ECG demonstrated normal sinus rhythm . The peak exercise ECG demonstrated no obvious ECG changes . There were no cardiac dysrhythmias pretest, during exercise, or recovery. The functional capacity was considered average . The patient had no complaint of chest discomfort during exercise or recovery. The examination was discontinued secondary to hypertension . Impression: 1. Technically adequate (percent predicted maximal heart rate greater than 85%) exercise tolerance test 2. Peak exercise ECG with No obvious ECG changes 3. There were no cardiac dysrhythmias during exercise or recovery 4. Resting hypertension-exaggerated blood pressure response to exercise This note was generated with [employer] software. It may contain incorrect words, spelling, and punctuation that were not noted in checking the note before signing.
== END ==
PROVIDERS: Family Provider Family Medicine; PCP Family Medicine; Referring Provider Internal Medicine Cardiovascular Disease; Visit Provider Internal Medicine Cardiovascular Disease
DX: E78.2 Mixed hyperlipidemia (principal)
CPT/HCPCS: 93017

== ENCOUNTER → 2020-02-19 12:30 | Outpatient (CLI) | payer OTHER, SELFPAY ==
[2019-10-20 10:28] VITALS: BMI 33.0
[2020-02-19 13:32] LABS: AST(SGOT) 33 U/L (15-37); Alanine Aminotransfer ALT/SGPT 73 U/L (16-61); Albumin, Serum 4.2 g/dL (3.2-5.0); Alkaline Phosphatase 91 U/L (45-117); Anion Gap 4 (5-15); BUN 16 mg/dL (7-18); BUN/Creat Ratio 18.8 RATIO (10-20); Bilirubin, Direct 0.24 mg/dL (0.00-0.30); Calcium,Total 8.8 mg/dL (8.5-10.1); Chloride 110 mmol/L (98-107); Cholesterol 142 mg/dL (200); Creatinine, Serum 0.85 mg/dL (0.70-1.30); EST Glomerular Filtration Rate 100 mL/min (>60); Est Glom Filt Rate - Afr Amer 122 mL/min (>60); Globulin 3.5 g/dL (2.2-4.2); Glucose 88 mg/dL (74-106); High Density Lipoprotein 54 mg/dL; Potassium 3.8 mmol/L (3.5-5.1); Protein, Total 7.7 g/dL (6.4-8.2); Sodium Level 140 mmol/L (136-145); Triglycerides 71 mg/dL; Very Low Density Lipoprotein 14 mg/dL (5-40)
== END ==
PROVIDERS: PCP Family Medicine; Referring Provider Physician Assistant Medical; Visit Provider Physician Assistant Medical
DX: I10 Essential (primary) hypertension (principal); I34.1 Nonrheumatic mitral (valve) prolapse; E78.5 Hyperlipidemia, unspecified; I48.0 Paroxysmal atrial fibrillation; E87.6 Hypokalemia
CPT/HCPCS: 36415; 80048; 80061; 80076

== ENCOUNTER → 2020-11-24 09:08 | Outpatient (CLI) | payer OTHER, SELFPAY ==
[2020-02-19 14:02] VITALS: BMI 33.0
[2020-11-24 10:47] LABS: ALB/GLOB Ratio 1.1 RATIO (0.9-2.4); AST(SGOT) 42 U/L (15-37); Alanine Aminotransfer ALT/SGPT 112 U/L (16-61); Albumin, Serum 3.9 g/dL (3.2-5.0); Alkaline Phosphatase 92 U/L (45-117); Anion Gap 4 (5-15); BUN 17 mg/dL (7-18); Calcium,Total 9.1 mg/dL (8.5-10.1); Chloride 107 mmol/L (98-107); Cholesterol 151 mg/dL (200); Creatinine, Serum 0.85 mg/dL (0.70-1.30); EST Glomerular Filtration Rate 100 mL/min (>60); Est Glom Filt Rate - Afr Amer 121 mL/min (>60); Globulin 3.7 g/dL (2.2-4.2); Glucose 100 mg/dL (74-106); High Density Lipoprotein 54 mg/dL; PSA,Total - Annual Screen 0.48 ng/mL (0.00-4.00); Protein, Total 7.6 g/dL (6.4-8.2); Sodium Level 139 mmol/L (136-145); Thyroid Stim Hormone (TSH) 0.86 uIU/mL (0.358-3.74); Triglycerides 95 mg/dL; Very Low Density Lipoprotein 19 mg/dL (5-40)
[2020-11-24 11:15] LABS: AST(SGOT) 41 U/L (15-37); Alanine Aminotransfer ALT/SGPT 112 U/L (16-61); Alkaline Phosphatase 91 U/L (45-117); Bilirubin, Direct 0.17 mg/dL (0.00-0.30); Globulin 3.7 g/dL (2.2-4.2); Protein, Total 7.7 g/dL (6.4-8.2)
== END ==
PROVIDERS: Physician Assistant Medical; PCP Family Medicine; Referring Provider Family Medicine; Visit Provider Family Medicine
DX: I48.91 Unspecified atrial fibrillation (principal); Z12.5 Encounter for screening for malignant neoplasm of prostate; E78.00 Pure hypercholesterolemia, unspecified; E78.5 Hyperlipidemia, unspecified
CPT/HCPCS: 36415; 80053; 80061; 80076; 84153; 84443; G0103

== ENCOUNTER → 2021-03-30 11:12 | Outpatient (CLI) | payer OTHER, SELFPAY ==
[2021-03-30 12:15] LABS: Absolute Lymphocyte Count 1.62 X10^3/uL (0.83-4.51); Absolute Neutrophil Count 4.1 X10^3/uL (2.0-7.7); Basophil# 0.05 X10^3/uL; Basophil% 0.8 % (0-1); Eosinophil# 0.07 X10^3/uL; Eosinophils% 1.1 % (0-5); Hematocrit 46.3 % (40-54); Hemoglobin 15.4 g/dL (13.0-16.5); Lymphocyte # 1.62 X10^3/ul (0.83-4.51); Lymphocyte % 25.4 % (19-41); Mean Corp Hgb Conc 33.3 g/dL (32-36); Mean Corpuscular Hgb 31.2 pg (27.0-32.0); Mean Corpuscular Volume 93.7 fL (80-94); Monocyte# 0.52 X10^3/uL; Monocyte% 8.2 % (0-10); NRBC Flagged by Analyzer 0 % (0-5); Neutrophil # 4.11 X10^3/uL (2.7-7.7); Neutrophil % 64.3 % (47-70); Platelet Count 234 K/mm3 (150-450); RBC Distribution Width CV 12.6 % (11.6-14.6); RBC Distribution Width SD 43.5 fl (35.1-43.9); Red Blood Count 4.94 M/mm3 (4.6-6.2); White Blood Count 6.4 K/mm3 (4.4-11.0)
[2021-03-30 13:05] LABS: Anion Gap 3 (5-15); BUN 12 mg/dL (7-18); BUN/Creat Ratio 14.4 RATIO (10-20); Calcium,Total 9.4 mg/dL (8.5-10.1); Chloride 107 mmol/L (98-107); Creatinine, Serum 0.84 mg/dL (0.70-1.30); EST Glomerular Filtration Rate 102 mL/min (>60); Est Glom Filt Rate - Afr Amer 124 mL/min (>60); Glucose 118 mg/dL (74-106); Magnesium 2.3 mg/dL (1.6-2.6); Potassium 4.2 mmol/L (3.5-5.1); Sodium Level 140 mmol/L (136-145); Thyroid Stim Hormone (TSH) 0.98 uIU/mL (0.358-3.74)
== END ==
PROVIDERS: PCP Family Medicine; Referring Provider Family Medicine; Visit Provider Family Medicine
DX: I48.91 Unspecified atrial fibrillation (principal)
CPT/HCPCS: 36415; 80048; 83735; 84443; 85025

== ENCOUNTER → 2021-04-01 09:11 | Outpatient (CLI) | payer OTHER, SELFPAY | PROVIDERS: PCP Family Medicine; Visit Provider Internal Medicine Cardiovascular Disease | DX: I48.0 Paroxysmal atrial fibrillation (principal) | CPT/HCPCS: 93225; 93226 ==

== ENCOUNTER 2021-08-30 10:01 | Outpatient (CLI) | payer OTHER, SELFPAY ==
[2021-08-30 12:31] LABS: ALB/GLOB Ratio 1.1 RATIO (0.9-2.4); AST(SGOT) 28 U/L (15-37); Alanine Aminotransfer ALT/SGPT 57 U/L (16-61); Albumin, Serum 4.2 g/dL (3.2-5.0); Alkaline Phosphatase 91 U/L (45-117); Anion Gap 5 (5-15); BUN 17 mg/dL (7-18); BUN/Creat Ratio 18.5 RATIO (10-20); Calcium,Total 9.5 mg/dL (8.5-10.1); Chloride 107 mmol/L (98-107); Creatinine, Serum 0.92 mg/dL (0.70-1.30); EST Glomerular Filtration Rate 91 mL/min (>60); Est Glom Filt Rate - Afr Amer 111 mL/min (>60); Globulin 3.9 g/dL (2.2-4.2); Glucose 88 mg/dL (74-106); Protein, Total 8.1 g/dL (6.4-8.2); Sodium Level 140 mmol/L (136-145)
[2021-08-30 12:43] LABS: Cholesterol 163 mg/dL (200); High Density Lipoprotein 52 mg/dL; Triglycerides 82 mg/dL; Very Low Density Lipoprotein 16 mg/dL (5-40)
== END 2021-08-30 23:59 | disposition home or self-care (01) ==
LOC: MTLAB 10:03
PROVIDERS: Nurse Practitioner Gerontology; PCP Family Medicine; Referring Provider Family Medicine; Visit Provider Family Medicine
DX: E78.5 Hyperlipidemia, unspecified (principal)
CPT/HCPCS: 36415; 80053; 80061

== ENCOUNTER → 2021-12-15 | Outpatient (CLI) | payer OTHER, SELFPAY ==
[2021-12-15 16:10] LABS: Anion Gap 5 (5-15); BUN 15 mg/dL (7-18); BUN/Creat Ratio 17.1 RATIO (10-20); Calcium,Total 9.3 mg/dL (8.5-10.1); Chloride 107 mmol/L (98-107); Cholesterol 159 mg/dL (200); Creatinine, Serum 0.88 mg/dL (0.70-1.30); EST Glomerular Filtration Rate 96 mL/min (>60); Est Glom Filt Rate - Afr Amer 117 mL/min (>60); Glucose 98 mg/dL (74-106); High Density Lipoprotein 48 mg/dL; PSA,Total - Annual Screen 0.42 ng/mL (0.00-4.00); Potassium 4.1 mmol/L (3.5-5.1); Sodium Level 140 mmol/L (136-145); Thyroid Stim Hormone (TSH) 0.91 uIU/mL (0.358-3.74); Triglycerides 98 mg/dL; Very Low Density Lipoprotein 20 mg/dL (5-40)
== END | disposition home or self-care (01) ==
LOC: MTLAB 13:39
PROVIDERS: PCP Family Medicine; Referring Provider Family Medicine; Visit Provider Family Medicine
DX: I48.91 Unspecified atrial fibrillation (principal); Z12.5 Encounter for screening for malignant neoplasm of prostate
CPT/HCPCS: 36415; 80048; 80061; 84153; 84443; G0103

== ENCOUNTER → 2022-01-23 | Outpatient (CLI) | payer OTHER, SELFPAY | END | disposition home or self-care (01) | LOC: SL 12:18 | PROVIDERS: PCP Family Medicine; Referring Provider Internal Medicine Critical Care Medicine; Visit Provider Internal Medicine Critical Care Medicine | DX: G47.33 Obstructive sleep apnea (adult) (pediatric) (principal) | CPT/HCPCS: 95806 ==

== ENCOUNTER → 2022-02-16 | Outpatient (CLI) | payer OTHER, SELFPAY ==
--- NOTE | 2022-02-16 14:55 | ECHOD_ITS ---
Reason For Study: MV INSUFF. Procedure This was a 2D Doppler, Color Flow transthoracic echocardiogram. The exam was of adequate technical quality. Exam performed in department. Left Ventricle Normal LV size. Left ventricular systolic function is normal. The estimated ejection fraction is 65 %. Transmitral doppler flow suggestive of impaired relaxation of left ventricle. No regional wall motion abnormalities noted. Right Ventricle Normal RV size. Normal systolic function. Atria Normal left atrium. Normal right atrium. No doppler evidence for ASD. Mitral Valve There is no mitral annular calcification. Anterior leaflet diffuse mitral valve thickening. Mild (1+) mitral valve insufficiency. Tricuspid Valve Normal tricuspid valve. Trivial tricuspid valve insufficiency. Unable to estimate RV systolic pressure due to insufficient tricuspid regurgitant envelope. Aortic Valve Trisinus/trileaflet aortic valve. Normal aortic valve. Pulmonic Valve The pulmonic valve is not well visualized. Trivial pulmonic valve insufficiency. Great Vessels Borderline enlarged aortic root. Pericardium/Pleural No pericardial effusion. MMode/2D Measurements & Calculations LVIDd: 4.9 cm IVSd: 1.2 cm Ao root diam: 3.9 cm LVIDs: 3.1 cm LVPWd: 1.6 cm FS: 36.6 % LAV(MOD-sp4): 34.8 ml LVAd ap4: 38.9 cm2 SV(MOD-sp4): 82.9 ml LVLd ap4: 9.1 cm EDV(MOD-sp4): 133.0 ml EDV(sp4-el): 140.6 ml LVAs ap4: 20.9 cm2 LVLs ap4: 7.2 cm ESV(MOD-sp4): 50.1 ml ESV(sp4-el): 51.6 ml EF(MOD-sp4): 62.3 % EF(sp4-el): 63.3 % SV(sp4-el): 89.0 ml LA A4 area: 15.2 cm2 LA dimension(2D): 3.8 cm RA A4 area: 15.6 cm2 Time Measurements MV dec time: 0.33 sec Doppler Measurements & Calculations MV E max ramon: 56.9 cm/sec Lat Peak E' Ramon: 9.8 cm/sec Med Peak E' Ramon: 5.2 cm/sec MV A max ramon: 66.0 cm/sec E/E' lat: 5.8 E/E' med: 11.0 MV E/A: 0.86 Ao V2 max: 152.5 cm/sec LV V1 max: 124.9 cm/sec MV dec slope: 179.2 cm/sec2 Ao max P.3 mmHg LV V1 max P.2 mmHg Ao V2 mean: 103.7 cm/sec LV V1 mean P.7 mmHg Ao mean P.9 mmHg LV V1 mean: 91.3 cm/sec Ao V2 VTI: 30.0 cm LV V1 VTI: 24.9 cm MR max ramon: 459.1 cm/sec PA V2 max: 80.7 cm/sec MR max P.3 mmHg ECHO/Echo Complete Interpretation Summary Left ventricular systolic function is normal. The estimated ejection fraction is 65 %. Anterior leaflet diffuse mitral valve thickening. Mild (1+) mitral valve insufficiency. Trivial tricuspid valve insufficiency. Trivial pulmonic valve insufficiency. Borderline enlarged aortic root. Unable to estimate RV systolic pressure due to insufficient tricuspid regurgita nt envelope. Transmitral doppler flow suggestive of impaired relaxation of left ventricle Ordering Physician: Mary Caldwell Referring Physician: Mary Caldwell Performed By: Nicky Thomas RCS
== END | disposition home or self-care (01) ==
LOC: CVS 14:53
PROVIDERS: PCP Family Medicine; Referring Provider Nurse Practitioner Gerontology; Visit Provider Nurse Practitioner Gerontology
DX: I38 Endocarditis, valve unspecified (principal); I34.1 Nonrheumatic mitral (valve) prolapse
CPT/HCPCS: 93306

== ENCOUNTER 2022-03-28 13:00 | Outpatient (RCR) | payer OTHER, SELFPAY ==
--- NOTE | 2022-02-02 16:29 | HP.PTEVAL_ITS ---
Patient's Visit Information JAYLEEN CARTAGENA is a 56 year old M referred to Physical Therapy by Dr. Joey Saenz MD with a diagnosis of LEFT CALF TEAR LATERAL> MEDIAL. Date of Evaluation: 02/02/22 Physical Therapist: Moy Jacobs PT, Cert MDT, OCS - Visit Plan Frequency: 2x /Week Duration: 4 Weeks Plan: PT INTERVETIONS MODALTIES FOR PAIN , ROM /FLEXABLITY CALF ,GRADED STRENGTHENING ANKLE -G-S, FUNCTIONAL STRENGTHNEING AND MANUAL THERAPY - Subjective This 56 y/o male presents to physical therapy left calf tear. Patient last night tore left calf playing [employer] softball running to 1st base felt pop immediate pain . Patient stopped playing ,limped home. Compression sleeve and ice . Seen DR today no diagnostics ,no meds. Patient has pain with all functional activities with walking ,standing ,bending , and stairs. Patient some better with rest. Uses compression sleeve . 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 Patient condition affects function and ADLS. SOCIAL: . VOCATION : [employer] 5th GRADE - Pain Left Lower Extremity Pain Intensity (Out of 10): 5 Pain Intensity Range: 10 Comment: CALF - Objective POSTURE: frontal plane mechanics normal. GAIT: antalgic gait right side with poor toe off -heel strike. EDEMA: mid calf 44 cm right ,left 43 cm. PALAPAT ION: severe tenderness calf. NEURO: intact. AROM: 10 dorsiflexion for neutral ,plantarflexion 60 degrees, inversion 20 degrees, eversion 5 degrees. MMT( peak force ) : amteriortibials 16.8,G-S 8.6, peroneus 12.6,posteriobials 13.4. PRIOCEPTION: absent. -EMMANUEL TEST - Balance/Special Test Scores Lower Extremity Functional Score: 30 - Goals Goal 1:: Patient to be I with HEP for calf Goal Time Frame: 4-6 Weeks Goal 2:: Patient to normalize gait Goal Time Frame: 4-6 Weeks Goal 3:: Patient to demonstrate 70 improvement with decrease pain and improve function with gait Goal Time Frame: 4-6 Weeks Goal 4:: Patient to improve peak force of ankle stabilizers by 10 to improve unction and gait Goal Time Frame: 4-6 Weeks Goal 5:: Patient to to improve LFES score by 10-15 points to improve gait Goal Time Frame: 4-6 Weeks - Rehabilitation Potential Physical Therapy Diagnosis: This patient has acute calf strain which occurred 02/01/22 playing softball felt pop immediate pain with weakness ,decrease ROM impairs walking along with swelling although no bruising currently thus will benefit from skilled PT Rehabilitation Potential: Good - Anticipated Interventions Patient/Client Instruction: Educate patient on: Condition, Plan of Care For the Purpose of:: To decrease pain, To increase ROM, To improve muscle performance and motor function, To improve ability to perform ADL's, To increase tolerance to activity/condition/position, To improve ability of physical actions for home/community/work/leisure, To improve health of tissue, To decrease soft tissue restriction, To increase flexibility/ROM, To prevent re-injury Therapeutic Exercise to Include: Strength training, Endurance training, Balance training, Flexibilty training, Gait and locomotor training, Passive ROM, Active ROM Comment: G-S For the Purpose of:: To decrease pain, To decrease swelling/inflammation, To increase ROM, To improve nutrient delivery to tissue, To increase oxygenation perfusion, To improve muscle performance and motor function, To improve ability to perform ADL's, To increase tolerance to activity/condition/position, To improve ability of physical actions for home/community/work/leisure, To improve gait and locomotor functions, To improve health of tissue, To decrease soft tissue restriction, To increase flexibility/ROM, To improve endurance, To improve balance, To prevent re-injury, To improve tolerance to ADL's TENS: Yes IF ES: Yes Cryotherapy (ice pack, ice massage): Yes Thermo therapy (hot pack): Yes Ultrasound (thermal/non thermal): Yes Vasopneumatic device: Yes For the Purpose of:: To decrease pain, To decrease swelling/inflammation, To increase ROM, To improve health of tissue, To decrease soft tissue restriction, To increase flexibility/ROM Thank you for the opportunity to evaluate your patient. For Medicare and Medicare HMO plans, please review the plan of care and approve it. It will need to be FAXED BACK to us at [phone] for Medicare purposes. For Medicare only, by signing this I certify the plan of care. Please let me know if there are questions or concerns regarding this plan of care. Physician Signature: Date:
--- NOTE | 2022-07-04 12:19 | HP.PTDCSUM ---
It has been my pleasure to treat JAYLEEN CARTAGENA referred by Dr. Joey Saenz MD, with the diagnosis of LEFT CALF TEAR LATERAL> MEDIAL for a total of 13 visit(s). Discharge Date: Please see the following information for a summary of their discharge status. Subjective: Seen DR Happy with progress Left Lower Extremity Pain Intensity (Out of 10): 0 % Improvement: 90 Objective/Function: Good estrella of eccentrics and min tenderness during STM Goal 1:: Patient to be I with HEP for calf Goal 2:: Patient to normalize gait Goal 3:: Patient to demonstrate 70 improvement with decrease pain and improve function with gait Goal 4:: Patient to improve peak force of ankle stabilizers by 10 to improve unction and gait Goal 5:: Patient to to improve LFES score by 10-15 points to improve gait Plan: d/c If there are questions or concerns regarding this patient's physical therapy, please feel free to call me at [phone]. Thank you for the referral of this patient. Sincerely, Moy Jacobs, PT, Cert MDT, OCS Balance/Gait/Functional tests - Balance/Special Test Scores Lower Extremity Functional Score: 76
== END 2022-03-28 19:00 | disposition home or self-care (01) ==
LOC: PT 13:00
PROVIDERS: PCP Family Medicine; Referring Provider Family Medicine; Visit Provider Family Medicine
DX: S86.112D Strain of other muscle(s) and tendon(s) of posterior muscle group at lower leg level, left leg, subsequent encounter (principal); X58.XXXD Exposure to other specified factors, subsequent encounter
CPT/HCPCS: 97014; 97032; 97035; 97110; 97140; 97162; G0283

== ENCOUNTER → 2022-08-24 | Outpatient (CLI) | payer OTHER, SELFPAY ==
[2022-08-24 12:02] LABS: Absolute Lymphocyte Count 1.22 X10^3/uL (0.83-4.51); Absolute Neutrophil Count 2.5 X10^3/uL (2.0-7.7); Basophil# 0.03 X10^3/uL; Basophil% 0.7 % (0-1); Eosinophil# 0.03 X10^3/uL; Eosinophils% 0.7 % (0-5); Hematocrit 44.8 % (40-54); Hemoglobin 14.6 g/dL (13.0-16.5); Lymphocyte # 1.22 X10^3/ul (0.83-4.51); Lymphocyte % 27.7 % (19-41); Mean Corp Hgb Conc 32.6 g/dL (32-36); Mean Corpuscular Hgb 30.9 pg (27.0-32.0); Mean Corpuscular Volume 94.9 fL (80-94); Mean Platelet Vol. 10.1 fl (6.2-12.0); Monocyte# 0.66 X10^3/uL; NRBC Flagged by Analyzer 0 % (0-5); Neutrophil # 2.47 X10^3/uL (2.7-7.7); Neutrophil % 55.9 % (47-70); Platelet Count 190 K/mm3 (150-450); RBC Distribution Width CV 13.4 % (11.6-14.6); RBC Distribution Width SD 47.5 fl (35.1-43.9); Red Blood Count 4.72 M/mm3 (4.6-6.2); White Blood Count 4.4 K/mm3 (4.4-11.0)
[2022-08-24 12:07] LABS: Erythrocyte Sedimentation Rate 2 mm/hr (0-20)
[2022-08-24 12:26] LABS: ALB/GLOB Ratio 1.1 RATIO (0.9-2.4); AST(SGOT) 30 U/L (15-37); Alanine Aminotransfer ALT/SGPT 42 U/L (16-61); Albumin, Serum 4.1 g/dL (3.2-5.0); Alkaline Phosphatase 80 U/L (45-117); Amylase 69 U/L (25-115); Anion Gap 7 (5-15); BUN 15 mg/dL (7-18); BUN/Creat Ratio 16.5 RATIO (10-20); Calcium,Total 9.4 mg/dL (8.5-10.1); Chloride 105 mmol/L (98-107); Cholesterol 138 mg/dL (200); Creatinine, Serum 0.91 mg/dL (0.70-1.30); EST Glomerular Filtration Rate 92 mL/min (>60); Est Glom Filt Rate - Afr Amer 112 mL/min (>60); Globulin 3.9 g/dL (2.2-4.2); Glucose 99 mg/dL (74-106); High Density Lipoprotein 56 mg/dL; Lipase 167 U/L (73-393); Potassium 4.1 mmol/L (3.5-5.1); Sodium Level 142 mmol/L (136-145); Thyroid Stim Hormone (TSH) 0.47 uIU/mL (0.358-3.74); Triglycerides 75 mg/dL; Very Low Density Lipoprotein 15 mg/dL (5-40)
== END | disposition home or self-care (01) ==
LOC: MTLAB 09:46
PROVIDERS: PCP Family Medicine; Referring Provider Family Medicine; Visit Provider Family Medicine
DX: R10.13 Epigastric pain (principal); I48.91 Unspecified atrial fibrillation; Z13.220 Encounter for screening for lipoid disorders
CPT/HCPCS: 36415; 80053; 80061; 82150; 83690; 84443; 85025; 85652

== ENCOUNTER 2022-09-19 05:29 | Day surgery (SDC) | payer OTHER, SELFPAY ==
[2022-09-19 05:56] VITALS: BP 156/93; PULSE 85; RESP 18; TEMP 36.7; O2SAT 100; BMI 30.5
--- NOTE | 2022-09-19 05:57 | HP.PCM_ITS ---
History and Physical Date of Admission: 09/19/22 Visit Reasons:?UPPER & LOWER Chief Complaint: Consult for upper & lower scopes Acquisition Marketing Manager Required: No Is patient in pain?: No Allergies amoxicillin Allergy (Verified 09/12/22 13:42) Unknownhornet venom Allergy (Verified 09/12/22 13:42) NEEDS FOLLOW-UPPenicillins Allergy (Verified 09/12/22 13:42) Rashguaifenesin [From Mucinex] Adverse Reaction (Severe, Verified 09/12/22 13:42) elevated BP and CP Medications selenium 200 mcg tablet,delayed release 200 mcg PO QDAY 08/03/17 [History Confirmed 09/12/22] ascorbic acid (vitamin C) 500 mg tablet 500 mg PO BID 04/20/21 [History Confirmed 09/12/22] cholecalciferol (vitamin D3) 50 mcg (2,000 unit) capsule (Vitamin D3) 50 mcg PO DAILY 04/20/21 [History Confirmed 09/12/22] zinc gluconate 30 mg tablet 30 mg PO DAILY 04/20/21 [History Confirmed 09/12/22] aspirin 81 mg chewable tablet 3 tab PO DAILY 12/15/21 [History Confirmed 09/12/22] flecainide 100 mg tablet 100 mg PO Q12H #180 tabs 12/15/21 [Rx Confirmed 09/12/22] magnesium oxide 250 mg PO DAILY 12/15/21 [History Confirmed 09/12/22] metoprolol succinate 25 mg tablet,extended release 24 hr 12.5 mg PO BID #90 tabs 12/15/21 [Rx Confirmed 09/12/22] potassium chloride 10 mEq tablet,extended release(part/cryst) (Klor-Con M) See Rx Instructions .Route .COMPLEX #180 tabs 12/26/21 [Rx Confirmed 09/12/22] PFSH Medical History? HLD (hyperlipidemia) Hypokalemia Nonrheumatic mitral valve prolapse LEANN (obstructive sleep apnea) Paroxysmal atrial fibrillation Surgical History? History of cholecystectomy History of shoulder surgery Family History? Father Myocardial infarction Hypertension CAD (coronary artery disease)Mother DiabetesGrandfather Myocardial infarction Social History? Smoking Status:? Never smoker alcohol intake:? never substance use type:? does not use caffeine:? No HPI HPI HPI: 56-year-old gentleman.? A open access for colonoscopy was completed.? It is apparent that May 06, 2018 I performed a colonoscopy form and removed 3 small polyps.? Pathology of the polyps was a tubular adenoma of the cecum and a hyperplastic polyp of the distal sigmoid and a serrated adenoma being a mixed tubular adenoma and hyperplastic polyp of the rectum.? The patient has a paternal uncle had colon cancer.? He is on low-dose aspirin therapy. The patient has been having bouts of epigastric pain and mid scapular pain.? He has already had a previous cholecystectomy.? He drinks milk and takes Pepto- Bismol with some improvement.? His son is a chiropractor and has done some adjusting form which has improved the situation.? The patient also has had a 15 pound weight loss.? He states that he thinks that is because he had a dietary change eating oatmeal small amounts frequently throughout the day and having a normal supper.? He believes that his total food intake has decreased intentionally.? It is of note however that he had a grandfather who had pancreatic cancer. As of August 24, 2022 white blood cell count was 4.4 with a hemoglobin 14.6 hematocrit of 44.8 and a platelet count of 190,000.? BUN was 15 and creatinine 0.91 with a normal blood glucose of 99.? Liver function tests were normal.? Triglycerides 75 with a cholesterol of 138.? Amylase was 69 and lipase 167. He otherwise enjoys very good health.? 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 Michael is shadowing him. No current low abdominal pain.? No bright red blood per rectum or melena. ROS General General: Yes weight change; No appetite, fatigue, colon cancer, breast cancer or weakness Additional Details: Lost 15lbs in , maintaining current weight HEENT HEENT: No difficulty swallowing, eye injury, eye surgery, swollen glands or hoarseness Endo Endocrine: No thyroid disease, diabetes mellitus, thyroid cancer, Hair loss, heat intolerance or cold intolerance Skin Skin: Yes changing moles; No rash Musc Musculoskeletal: Yes back problems; No arthritis, rheumatoid arthritis, gout or joint pain Cardio Cardiovascular: Yes atrial fibrillation and high blood pressure; No murmur, pacemaker, heart disease, heart attack, heart stent, palpitations, shortness of breat with exertion or chest pain Psych Psychiatric: No depression, anxiety or hearing voices Resp Respiratory: No shortness of breath, No sleep apnea, Yes cough, No COPD, No asthma, No emphysema and No wheezing Gastro Gastrointestinal: No abdominal pain, No nausea or vomiting, Yes diarrhea, No constipation, No blood in stool, No acid reflux, No hemorrhoids, No ulcers, No gallbladder problem and No black,tarry stools Heraclio Hematologic: Yes blood thinners, No blood disorders, No bleeding, No anemia and No blood clots Additional Details: Factor V, Baby ASA 3 per day Neuro Neurologic: No system reviewed and no additional complaints, except as documented, No as per HPI, No abnormal gait, No abnormal hearing, No abnormal movements, No abnormal speech, No behavioral changes, No burning sensations, No confusion, No convulsions, No disequilibrium, No dizziness, No localized weakness, No frequent falls, No headache(s), No lack of coordination, No loss of vision, No memory loss, No numbness, No other visual disturbances, No radicular pain, No restless legs, No sensory deficit, No syncope, No tingling, No tremor(s), No weakness and No other Exam Const General: cooperative, healthy appearing, comfortable and no acute distress Nutritional Appearance: average body habitus Orientation: alert, awake and oriented x3 [facility] Head: normal to inspection Eyes General: appearance normal, both eyes and all related structures Neck Neck: normal visual inspection Chest Chest palpation & inspection: normal inspection of the chest Resp Effort & Inspection: normal respiratory effort Auscultation: clear to auscultation bilaterally Cardio Rate: regular rate Rhythm: regular rhythm GI Inspection: normal to inspection Palpation: soft and no hepatosplenomegaly Musc Cervical Spine: normal cervical lordosis Skin General: no rashes or lesions noted Neuro General: patient alert, patient awake and patient oriented x3 Extrem General: no calf tenderness Psych Appearance: grossly normal Assessment and Plan Assessment and Plan (1) Personal history of colonic polyps: ?Status:?Acute ?Plan: Indeed the patient's weight loss may be secondary to dietary changes and intentional loss.? His epigastric pain could indeed be explained by reflux issues or gastritis.? He is already had a cholecystectomy so the intrascapular back pain is less easy to describe as secondary to gastritis.? He has had previous colon polyps however in the offering of his evaluation occult malignancy cannot be excluded. I do recommend to him a esophagogastroduodenoscopy with possible biopsy and colonoscopy with possible biopsy or polypectomy.? He is aware of the technique, benefit, risk, alternatives. I do have concerns about the intrascapular back pain.? Family history is 1 of pancreatic cancer in her grandfather.? I recommend a contrasted abdominal CT scan. He has had an opportunity ask and have questions answered.? He concurs and would like to proceed as noted. It is of additional note that he has paroxysmal atrial fibrillation and hypertension.? 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 The patient is on aspirin therapy because he does have concerns about bleeding with the more potent medications.? The patient states that Dr. Keith is aware of this decision. Copy: Dr. Ottoniel Quintana M.D., F.A.C.S. (2) Epigastric abdominal pain: (3) Back pain: (4) Factor V deficiency: ? ? ? Medications: Discontinued amlodipine ?? Discontinued Reason:? Pt no longer taking I have examined the patient and the H&P has been reviewed. There are no clinical changes since date of exam. Rene Quintana M.D., F.A.C.S.
[2022-09-19] MEDS: Lactated Ringers 1,000 ML 15 ML IV (05:59)
--- NOTE | 2022-09-19 06:30 | EGD_PTH ---
PATIENT: JAYLEEN CARTAGENA LOC: EN U#:[id number] AGE/SX: 56/M ROOM: RE09/19/[address]: Dr. Rene Quintana MD : 1965 BED: DIS: 09/19/2022 SPEC #: [id number] RECD: 09/19/22 10:03 STATUS: BASILIA GIBSON #: [id number] KEMAL: 09/19/22 06:[address]: Rene Quintana DEPT: SURGICAL PATHOLOGY RECD BY: Danielle Thompson ENTERED: 09/19/22 10:19 SP TYPE: EGD BIOPSY OT DR: Dr. Ottoniel Saenz MD Tissues: A - Duodenum, NOS B - Gastric mucous membrane C - Esophagus, NOS D - Esophagus, NOS E - Rectum, NOS Procedures: Special Stain Group II Surgery Specimen Level IV Alcian Blue/PAS (control) HEADER OPERATION: Colonoscopy, EGD (MAC), biopsy PRE-OP DIAGNOSIS: History of colonic polyps TISSUE SUBMITTED: A - Duodenum biopsy, B - Antrum biopsy for histo and H. pylori, C - Distal esophagus biopsy, D - Mid esophagus biopsy, E - Rectum polyps biopsy MICROSCOPIC DIAGNOSIS A. Duodenum, biopsy: Mucosal ulceration with associated acute and chronic inflammation. B. Gastric antrum, biopsy: Chronic gastritis. See comment. C. Distal esophagus, biopsy: Gastroesophageal junction mucosa with chronic inflammation. Fibrinopurulent material. No evidence of goblet cell metaplasia. See comment. D. Mid esophagus, biopsy: No pathologic change. E. Rectal polyps, biopsy: Fragments of hyperplastic polyp. AM:vinay 09/20/2022 COMMENT B. The results of immunohistochemistry for Helicobacter pylori will be reported separately ([id number]). C. Alcian blue/PAS stain with matched control supports the above diagnosis. MICROSCOPIC DESCRIPTION Slides are reviewed. GROSS DESCRIPTION A - Received in fixative is one container labeled with the patient's name and designated duodenum biopsy. The specimen consists of two irregular fragments of light barillas soft tissue that in aggregate measure 0.8 x 0.4 x 0.1 cm. The specimen is totally submitted in one cassette. B - Received in fixative is one container labeled with the patient's name and designated antrum biopsy. The specimen consists of one irregular fragment of light barillas soft tissue that measures 0.3 x 0.3 x 0.1 cm. The specimen is totally submitted in one cassette. C - Received in fixative is one container labeled with the patient's name and designated distal esophagus biopsy. The specimen consists of multiple irregular fragments of light barillas soft tissue that in aggregate measure 0.8 x 0.3 x 0.1 cm. The specimen is totally submitted in one cassette. D - Received in fixative is one container labeled with the patient's name and designated mid esophagus biopsy. The specimen consists of one irregular fragment of light barillas soft tissue that measures 0.5 x 0.3 x 0.1 cm. The specimen is totally submitted in one cassette. E - Received in fixative is one container labeled with the patient's name and designated rectal polyp biopsy. The specimen consists of two irregular fragments of light barillas soft tissue that in aggregate measure 0.6 x 0.3 x 0.1 cm. The specimen is totally submitted in one cassette. / SJ:rg 09/19/2022 TC:2 CPT: 88155 x5, 40399
--- NOTE | 2022-09-19 06:30 | IMM_PTH ---
PATIENT: JAYLEEN CARTAGENA LOC: EN U#:[id number] AGE/SX: 56/M ROOM: RE09/19/[address]: Dr. Rene Quintana MD : 1965 BED: DIS: 09/19/2022 SPEC #: [id number] RECD: 09/19/22 12:18 STATUS: BASILIA ARTHUR #: [id number] KEMAL: 09/19/22 06:[address]: Rene Quintana DEPT: IMMUNOHISTOCHEMISTRY RECD BY: Amarilis Muller ENTERED: 09/19/22 12:19 SP TYPE: IMMUNO OTHR DR: Dr. Ottoniel Saenz MD Tissues: B - Stomach, NOS Procedures: H Pylori (initial) PHYSICIAN & INSTITUTION [place] [id number] SPECIMEN INFORMATION: Tissue Source: B ? Antrum biopsy Clinical Info: History of colonic polyps Specimen Number: [id number] CPT code: 02111 METHODOLOGY: Deparaffinized sections of prefer/formalin-fixed tissue or PAP/DQ stained slides are incubated with monoclonal/polyclonal antibodies/oligonucleotide probes. Localization is made via biotin free immunoperoxidase method. Appropriate controls are performed and reacted as expected. Results on target cell population are indicated in the following table: RESULTS: ANTIBODY / CLONE RESULT Block B H Pylori (polyclonal) negative These tests were developed and their performance characteristics determined by [facility]. They may not have been cleared or approved by the U.S. Food and Drug Administration. The FDA has determined that such clearance or approval is not necessary. The above immunohistochemical/dualISH markers are ordered and reviewed by the Pathologist. INTERPRETATION: B. Antrum, biopsy: Negative for Helicobacter pylori organisms. AM:vinay 09/20/2022
[2022-09-19 07:05] VITALS: BP 129/49; BP 156/93; PULSE 67; RESP 16; TEMP 36.3; O2SAT 96
--- NOTE | 2022-09-19 07:05 | OP.EGD_ITS ---
Patient Name: Costa Ribera Procedure Date: 09/19/2022 6:13 AM Date of : 1965 Age: 56 Procedure: Upper GI endoscopy Indications: Epigastric abdominal pain Providers: Rene Quintana MD Referring MD: Rene Quintana MD Medicines: See the Anesthesia note for documentation of the administered medications Complications: No immediate complications. Procedure: Pre-Anesthesia Assessment: - Prior to the procedure, a History and Physical was performed, and patient medications and allergies were reviewed. The patient's tolerance of previous anesthesia was also reviewed. The risks and benefits of the procedure and the sedation options and risks were discussed with the patient. All questions were answered, and informed consent was obtained. Prior Anticoagulants: The patient has taken no previous anticoagulant or antiplatelet agents. ASA Grade Assessment: II - A patient with mild systemic disease. After reviewing the risks and benefits, the patient was deemed in satisfactory condition to undergo the procedure. After obtaining informed consent, the endoscope was passed under direct vision. Throughout the procedure, the patient's blood pressure, pulse, and oxygen saturations were monitored continuously. The colonoscope was introduced through the mouth, and advanced to the second part of duodenum. The upper GI endoscopy was accomplished without difficulty. The patient tolerated the procedure well. Scope In: 6:31:29 AM Scope Out: 6:39:58 AM Total Procedure Duration Time 0 hours 8 minutes 29 seconds Findings: The Z-line was irregular and was found 41 cm from the incisors. The mid esophagus was normal. Biopsies were taken with a cold forceps for histology. A small hiatal hernia was present. LA Grade C (one or more mucosal breaks continuous between tops of 2 or more mucosal folds, less than 75% circumference) esophagitis with no bleeding was found 41 cm from the incisors. Biopsies were taken with a cold forceps for histology. A few dispersed, non-bleeding erosions were found in the gastric antrum. There were stigmata of recent bleeding. Biopsies were taken with a cold forceps for histology. Diffuse moderate inflammation characterized by mucus was found in the duodenal bulb, in the first portion of the duodenum and in the second portion of the duodenum. Biopsies were taken with a cold forceps for histology. Impression: - Z-line irregular, 41 cm from the incisors. - Normal mid esophagus. Biopsied. - Small hiatal hernia. - LA Grade C reflux esophagitis. Biopsied. - Non-bleeding erosive gastropathy. Biopsied. - Acute duodenitis. Biopsied. Recommendation: - Discharge patient to home. - Resume previous diet. - Continue present medications. - Use Prilosec (omeprazole) 40 mg PO daily. Procedure Code(s): --- Professional --- 83330, Esophagogastroduodenoscopy, flexible, transoral; with biopsy, single or multiple Diagnosis Code(s): --- Professional --- K22.8, Other specified diseases of esophagus K44.9, Diaphragmatic hernia without obstruction or gangrene K21.0, Gastro-esophageal reflux disease with esophagitis K31.89, Other diseases of stomach and duodenum K29.80, Duodenitis without bleeding R10.13, Epigastric pain CPT copyright 2017 [employer] [place] [employer]. All rights reserved. The codes documented in this report are preliminary and upon water plant pump operator review may be revised to meet current compliance requirements. Rene Quintana MD 09/19/2022 7:04:39 AM This report has been signed electronically. Number of Addenda: 0 Note Initiated On: 09/19/2022 6:13 AM
--- NOTE | 2022-09-19 07:06 | OP.CCLET_ITS ---
09/19/2022 Joey Saenz [address] [place] [address] Re : Upper GI endoscopy procedure for Costa Ribera Dear Dr. Saenz This procedure was performed on Monday, September 19, 2022. My impressions and recommendations are as follows: Impressions : - Z-line irregular, 41 cm from the incisors. - Normal mid esophagus. Biopsied. - Small hiatal hernia. - LA Grade C reflux esophagitis. Biopsied. - Non-bleeding erosive gastropathy. Biopsied. - Acute duodenitis. Biopsied. Recommendations : - Discharge patient to home. - Resume previous diet. - Continue present medications. - Use Prilosec (omeprazole) 40 mg PO daily. My findings are described in the full procedure note, which is enclosed. If I can be of further assistance, please feel free to contact me at Doctor phone number(s): Work: . Sincerely, Rene Quintana MD 09/19/2022 7:04:39 AM This report has been signed electronically.
[2022-09-19 07:10] VITALS: BP 156/93; BP 82/51; PULSE 66; RESP 16; O2SAT 96
--- NOTE | 2022-09-19 07:13 | OP.COLON_ITS ---
Patient Name: Costa Ribera Procedure Date: 09/19/2022 6:40 AM Date of : 1965 Age: 56 Procedure: Colonoscopy Indications: High risk colon cancer surveillance: Personal history of colonic polyps Providers: Rene Quintana MD Referring MD: Rene Quintana MD Medicines: See the Anesthesia note for documentation of the administered medications Patient Profile: Last Colonoscopy: April 2018. Complications: No immediate complications. Procedure: Pre-Anesthesia Assessment: - Prior to the procedure, a History and Physical was performed, and patient medications and allergies were reviewed. The patient's tolerance of previous anesthesia was also reviewed. The risks and benefits of the procedure and the sedation options and risks were discussed with the patient. All questions were answered, and informed consent was obtained. Prior Anticoagulants: The patient has taken no previous anticoagulant or antiplatelet agents. ASA Grade Assessment: II - A patient with mild systemic disease. After reviewing the risks and benefits, the patient was deemed in satisfactory condition to undergo the procedure. After I obtained informed consent, the scope was passed under direct vision. Throughout the procedure, the patient's blood pressure, pulse, and oxygen saturations were monitored continuously. The colonoscope was introduced through the anus and advanced to the cecum, identified by appendiceal orifice and ileocecal valve. The colonoscopy was performed without difficulty. The patient tolerated the procedure well. The quality of the bowel preparation was good. The ileocecal valve and the appendiceal orifice were photographed. Scope In: 6:41:50 AM Scope Withdrawal Time 0 hours 12 minutes 48 seconds Scope Out: 6:57:39 AM Total Procedure Duration Time 0 hours 15 minutes 49 seconds Findings: The digital rectal exam findings include non-thrombosed external hemorrhoids, non-thrombosed internal hemorrhoids and internal hemorrhoids that prolapse with straining, but spontaneously regress to the resting position (Grade II). Pertinent negatives include normal prostate (size, shape, and consistency). Four 4 mm polyp was found in the rectum. The polyps were sessile. The polyps were removed with a cold biopsy forceps. Resection and retrieval were complete. The exam was otherwise normal throughout the examined colon. Impression: - Non-thrombosed external hemorrhoids, non-thrombosed internal hemorrhoids and internal hemorrhoids that prolapse with straining, but spontaneously regress to the resting position (Grade II) found on digital rectal exam. - Four 4 mm polyp in the rectum, removed with a cold biopsy forceps. Resected and retrieved. Recommendation: - Discharge patient to home. - Resume previous diet. - Continue present medications. - Repeat colonoscopy in 5 years for surveillance based on pathology results. - Telephone my office for pathology results in 1 week. Procedure Code(s): --- Professional --- 46213, Colonoscopy, flexible; with biopsy, single or multiple Diagnosis Code(s): --- Professional --- Z86.010, Personal history of colonic polyps K64.1, Second degree hemorrhoids K64.4, Residual hemorrhoidal skin tags K62.1, Rectal polyp CPT copyright 2017 [place] [employer]. All rights reserved. The codes documented in this report are preliminary and upon master brewer review may be revised to meet current compliance requirements. Rene Quintana MD 09/19/2022 7:12:48 AM This report has been signed electronically. Number of Addenda: 0 Note Initiated On: 09/19/2022 6:40 AM
--- NOTE | 2022-09-19 07:14 | OP.CCLET_ITS ---
09/19/2022 Joey Saenz [address] [place] [address] Re : Colonoscopy procedure for Costa Ribera Dear Dr. Saenz This procedure was performed on Monday, September 19, 2022. My impressions and recommendations are as follows: Impressions : - Non-thrombosed external hemorrhoids, non-thrombosed internal hemorrhoids and internal hemorrhoids that prolapse with straining, but spontaneously regress to the resting position (Grade II) found on digital rectal exam. - Four 4 mm polyp in the rectum, removed with a cold biopsy forceps. Resected and retrieved. Recommendations : - Discharge patient to home. - Resume previous diet. - Continue present medications. - Repeat colonoscopy in 5 years for surveillance based on pathology results. - Telephone my office for pathology results in 1 week. My findings are described in the full procedure note, which is enclosed. If I can be of further assistance, please feel free to contact me at Doctor phone number(s): Work: . Sincerely, Rene Quintana MD 09/19/2022 7:12:48 AM This report has been signed electronically.
[2022-09-19 07:15] VITALS: BP 156/93; BP 92/58; PULSE 67; RESP 16; O2SAT 96
[2022-09-19 07:20] VITALS: BP 100/64; BP 156/93; PULSE 63; RESP 16; TEMP 36.2; O2SAT 94
[2022-09-19 07:51] VITALS: BP 156/93
== END 2022-09-19 08:31 | disposition home or self-care (01) ==
LOC: EN 05:29 → AC 05:31
PROVIDERS: PCP Family Medicine; Referring Provider Surgery; Visit Provider Surgery
PROC: 0DJD8ZZ Inspection of Lower Intestinal Tract, Via Natural or Artificial Opening Endoscopic (ICD-10-PCS; CPT 45378; principal; 2022-09-19 06:25)
DX: K29.50 Unspecified chronic gastritis without bleeding (principal); I48.0 Paroxysmal atrial fibrillation; K62.1 Rectal polyp; K26.7 Chronic duodenal ulcer without hemorrhage or perforation; K26.3 Acute duodenal ulcer without hemorrhage or perforation; K64.1 Second degree hemorrhoids; K64.4 Residual hemorrhoidal skin tags; K44.9 Diaphragmatic hernia without obstruction or gangrene; K29.80 Duodenitis without bleeding; K21.00 Gastro-esophageal reflux disease with esophagitis, without bleeding; I10 Essential (primary) hypertension; G47.33 Obstructive sleep apnea (adult) (pediatric); Z79.899 Other long term (current) drug therapy; Z79.82 Long term (current) use of aspirin; Z86.010 Personal history of colon polyps; Z80.0 Family history of malignant neoplasm of digestive organs
CPT/HCPCS: 45380; 43239; 88305; 88313; 88342; J7120; J2405

== ENCOUNTER → 2023-05-24 | Outpatient (CLI) | payer OTHER, SELFPAY ==
[2023-05-24 12:29] LABS: AST(SGOT) 23 U/L (15-37); Alanine Aminotransfer ALT/SGPT 46 U/L (16-61); Alkaline Phosphatase 89 U/L (45-117); Bilirubin, Direct 0.19 mg/dL (0.00-0.30); Cholesterol 166 mg/dL (200); Globulin 3.5 g/dL (2.2-4.2); High Density Lipoprotein 50 mg/dL; Protein, Total 7.5 g/dL (6.4-8.2); Triglycerides 83 mg/dL; Very Low Density Lipoprotein 17 mg/dL (5-40)
== END | disposition home or self-care (01) ==
LOC: MTLAB 10:14
PROVIDERS: PCP Family Medicine; Referring Provider Nurse Practitioner Gerontology; Visit Provider Nurse Practitioner Gerontology
DX: E78.00 Pure hypercholesterolemia, unspecified (principal)
CPT/HCPCS: 36415; 80061; 80076

== ENCOUNTER → 2023-09-06 | Outpatient (CLI) | payer OTHER, SELFPAY ==
[2023-09-06 13:22] LABS: Anion Gap 2 (5-15); BUN 19 mg/dL (7-18); BUN/Creat Ratio 20.3 RATIO (10-20); Calcium,Total 9.6 mg/dL (8.5-10.1); Chloride 108 mmol/L (98-107); Creatinine, Serum 0.94 mg/dL (0.70-1.30); EST Glomerular Filtration Rate 89 mL/min (>60); Est Glom Filt Rate - Afr Amer 107 mL/min (>60); Glucose 123 mg/dL (74-106); PSA,Total - Annual Screen 1.12 ng/mL (0.00-4.00); Potassium 3.8 mmol/L (3.5-5.1); Sodium Level 140 mmol/L (136-145)
[2023-09-06 13:49] LABS: Hemoglobin A1c 5.6 % (3.8-5.6)
== END | disposition home or self-care (01) ==
LOC: MTLAB 10:07
PROVIDERS: PCP Family Medicine; Referring Provider Family Medicine; Visit Provider Family Medicine
DX: R73.01 Impaired fasting glucose (principal); I48.91 Unspecified atrial fibrillation; Z12.5 Encounter for screening for malignant neoplasm of prostate
CPT/HCPCS: 36415; 80048; 83036; 84153; G0103

== ENCOUNTER → 2024-11-18 | Outpatient (CLI) | payer OTHER, SELFPAY ==
[2024-11-18 15:30] LABS: Hematocrit 42.4 % (40-54); Hemoglobin 14.5 g/dL (13.0-16.5); Mean Corp Hgb Conc 34.2 g/dL (32-36); Mean Corpuscular Hgb 31.3 pg (27.0-32.0); Mean Corpuscular Volume 91.6 fL (80-94); Mean Platelet Vol. 10.1 fl (6.2-12.0); Platelet Count 205 K/mm3 (150-450); RBC Distribution Width CV 12.8 % (11.6-14.6); RBC Distribution Width SD 43.1 fl (35.1-43.9); Red Blood Count 4.63 M/mm3 (4.6-6.2); White Blood Count 7.2 K/mm3 (4.4-11.0)
[2024-11-18 16:03] LABS: ALB/GLOB Ratio 1.4 RATIO (0.9-2.4); AST(SGOT) 31 U/L (<=37); Alanine Aminotransfer ALT/SGPT 41 U/L (<=46); Albumin, Serum 4.4 g/dL (3.5-5.0); Alkaline Phosphatase 89 U/L (40-129); Anion Gap 11 (5-15); BUN 15 mg/dL (4-19); BUN/Creat Ratio 17.9 RATIO (10-20); Bilirubin, Direct 0.33 mg/dL (0.00-0.30); Calcium,Total 9.8 mg/dL (7.6-11.0); Carbon Dioxide 26.2 mmol/L (21.0-32.0); Chloride 103 mmol/L (98-108); Cholesterol 151 mg/dL (<=200); Creatinine, Serum 0.86 mg/dL (0.70-1.20); EST Glomerular Filtration Rate 102 (>60); Globulin 3.2 g/dL (2.2-4.2); Glucose 98 mg/dL (70-99); High Density Lipoprotein 47 mg/dL; Low Density Lipoprotein Calc. 88 mg/dL; PSA,Total - Annual Screen 0.62 ng/mL (0.02-4.00); Potassium 4.3 mmol/L (3.3-5.1); Protein, Total 7.7 g/dL (5.9-8.4); Sodium Level 140 mmol/L (133-145); Thyroid Stim Hormone (TSH) 0.836 uIU/mL (0.300-4.200); Total Bilirubin 0.83 mg/dL (0.00-1.30); Triglycerides 80 mg/dL; Very Low Density Lipoprotein 16 mg/dL (5-40); cholesterol:hdl ratio screen 3.23
== END | disposition home or self-care (01) ==
LOC: MTLAB 11:21
PROVIDERS: PCP Family Medicine; Referring Provider Family Medicine; Visit Provider Family Medicine
DX: I48.91 Unspecified atrial fibrillation (principal); Z13.220 Encounter for screening for lipoid disorders; Z12.5 Encounter for screening for malignant neoplasm of prostate
CPT/HCPCS: 36415; 80053; 80061; 82248; 84153; 84443; 85027; G0103

== ENCOUNTER → 2025-01-30 | Outpatient (CLI) | payer OTHER, SELFPAY ==
--- NOTE | 2025-01-30 09:39 | RAD_ITS ---
EXAM: XR Right Ankle Complete, 3 or More Views CLINICAL INDICATION: INJURY 2 DAYS AGO. BRUISING MEDIAL AND LATERAL. R ANKLE. TECHNIQUE: Frontal, lateral and oblique views of the right ankle. COMPARISON: No relevant prior studies available. FINDINGS: BONES/JOINTS: See below. SOFT TISSUES: Soft tissue swelling without acute fracture. RAD/Ankle min 3 Views IMPRESSION: 1. Soft tissue swelling without acute fracture. 2. If symptoms persist, further evaluation with CT is recommended. Reading [facility]
== END | disposition home or self-care (01) ==
LOC: MTRAD 09:38
PROVIDERS: PCP Family Medicine; Referring Provider Family Medicine; Visit Provider Family Medicine
DX: M25.571 Pain in right ankle and joints of right foot (principal)
CPT/HCPCS: 73610

== ENCOUNTER → 2025-03-11 | Outpatient (CLI) | payer OTHER, SELFPAY ==
--- NOTE | 2025-03-11 13:52 | ECHOD_ITS ---
Reason For Study Reason For Study: MVP, HTN. Procedure This was a 2D Doppler, Color Flow transthoracic echocardiogram. Exam performed in department. Left Ventricle Normal LV size. The left ventricular ejection fraction is 65 %. No regional wall motion abnormalities noted. Right Ventricle Normal RV size. Normal systolic function. Atria Normal left atrium. Normal right atrium. Mitral Valve Bileaflet diffuse mitral valve thickening. Mild (1+) eccentric mitral valve insufficiency. Tricuspid Valve Normal tricuspid valve. Mild (1+) tricuspid valve insufficiency. Pulmonary artery systolic pressure is 24 mmHg. Aortic Valve Trisinus/trileaflet aortic valve. Pulmonic Valve Normal pulmonic valve. Great Vessels Normal aortic root. The pulmonary artery is normal size. Normal inferior vena cava. Pericardium/Pleural No pericardial effusion. MMode/2D Measurements & Calculations LVIDd: 5.4 cm IVSd: 1.1 cm CO(Teich): 5.2 l/min LVIDs: 3.3 cm LVPWd: 1.1 cm RVDd: 3.1 cm FS: 38.1 % Ao root diam: 4.0 cm LAV(MOD-bp): 76.0 ml LVAd ap4: 41.9 cm2 LAV(MOD-bp) Indexed: 33.5 ml/m2 LVLd ap4: 9.7 cm LAV(MOD-sp2): 76.5 ml EDV(MOD-sp4): 147.1 ml LAV(MOD-sp4): 68.8 ml EDV(sp4-el): 153.9 ml LVAs ap4: 21.0 cm2 LVLs ap4: 7.4 cm ESV(MOD-sp4): 49.8 ml ESV(sp4-el): 50.7 ml EF(MOD-sp4): 66.2 % EF(sp4-el): 67.1 % LVAd ap2: 33.3 cm2 CO(MOD-sp4): 5.2 l/min SV(MOD-sp2): 61.4 ml LVLd ap2: 8.7 cm SV(MOD-sp4): 97.3 ml SI(MOD-sp2): 27.1 ml/m2 EDV(MOD-sp2): 107.2 ml SI(MOD-sp4): 42.9 ml/m2 EDV(sp2-el): 108.9 ml LVAs ap2: 20.4 cm2 LVLs ap2: 7.9 cm ESV(MOD-sp2): 45.8 ml ESV(sp2-el): 44.9 ml EF(MOD-sp2): 57.3 % SV(sp4-el): 103.2 ml LA dimension(2D): 4.4 cm LA A4 area: 22.1 cm2 TAPSE: 3.0 cm Time Measurements MV dec time: 0.17 sec Doppler Measurements & Calculations MV E max ramon: 65.7 cm/sec Lat Peak E' Ramon: 7.7 cm/sec Med Peak E' Ramon: 8.0 cm/sec MV A max ramon: 53.4 cm/sec E/E' lat: 8.5 E/E' med: 8.2 MV E/A: 1.2 MV V2 max: 81.4 cm/sec MV P1/2t max ramon: 75.5 cm/sec Ao V2 max: 134.6 cm/sec MV max P.7 mmHg MV P1/2t: 52.3 msec Ao max P.3 mmHg MV V2 mean: 42.4 cm/sec MV dec slope: 423.0 cm/sec2 Ao V2 mean: 89.0 cm/sec MV mean P.87 mmHg Ao mean P.7 mmHg MV V2 VTI: 30.2 cm MVA(P1/2t): 4.2 cm2 Ao V2 VTI: 29.7 cm AV (velocity ratio): 0.89 LV V1 max: 106.3 cm/sec PA V2 max: 105.7 cm/sec PI end-d ramon: 140.1 cm/sec LV V1 max P.5 mmHg PA V2 mean: 73.5 cm/sec LV V1 mean P.5 mmHg LV V1 mean: 75.7 cm/sec LV V1 VTI: 26.3 cm TR max ramon: 224.7 cm/sec TR max P.3 mmHg ECHO/Echo Complete Interpretation Summary Normal LV size. The left ventricular ejection fraction is 65 %. Mild (1+) tricuspid valve insufficiency. Bileaflet diffuse mitral valve thickening. Mild (1+) eccentric mitral valve insufficiency. Ordering Physician: Mary Caldwell Referring Physician: Ottoniel Saenz Performed By: Rupinder Chan, TORITO, RVT
== END | disposition home or self-care (01) ==
PROVIDERS: PCP Family Medicine; Referring Provider Nurse Practitioner Gerontology; Visit Provider Nurse Practitioner Gerontology
DX: I10 Essential (primary) hypertension (principal); I48.0 Paroxysmal atrial fibrillation; I34.1 Nonrheumatic mitral (valve) prolapse
CPT/HCPCS: 93306